=== PATIENT | male | born 1945 | race Caucasian/White ===

== ENCOUNTER 2021-01-09 16:19 | Outpatient (REF) | payer MEDICARE, SELFPAY ==
[2021-01-09 18:24] LABS: Hemoglobin A1C 5.9 % (<5.7)
== END 2021-01-09 16:20 | disposition home or self-care (01) ==
LOC: NCHCN 16:19
PROVIDERS: PCP Nurse Practitioner Family; Visit Provider Nurse Practitioner Family
DX: E11.9 Type 2 diabetes mellitus without complications (principal); I10 Essential (primary) hypertension
CPT/HCPCS: 83036

== ENCOUNTER → 2021-01-17 13:34 | Outpatient (BNVA) | payer MEDICARE, SELFPAY | PROVIDERS: PCP Nurse Practitioner Family; Referring Provider Nurse Practitioner Family; Visit Provider Physical Therapy Assistant | DX: K22.70 Barrett's esophagus without dysplasia (principal); I10 Essential (primary) hypertension; G20 Parkinson's disease; E11.9 Type 2 diabetes mellitus without complications | CPT/HCPCS: 99203 ==

== ENCOUNTER 2021-01-24 02:25 | Outpatient (CLI) | payer MEDICARE, SELFPAY ==
--- NOTE | 2021-01-24 | DI.US_ITS ---
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 COMPARISON: No exams were available for comparison FINDINGS: There is no ascites evident. LIVER: There is hyperechoic indicating steatosis. There are no discrete focal hepatic lesions identi fied GALLBLADDER/BILIARY: There are gallstones within the gallbladder lumen. Gallbladder wall does not ap pear edematous. There is no pericholecystic fluid The common hepatic duct isnot dilated, measuring 5mm at the level of griselda hepatis. PANCREAS: No obvious abnormality. SPLEEN: The spleen is not enlarged and there are no intrasplenic lesions evident. KIDNEYS:Kidneys exhibit normal size with no evidence of solid mass, calculus, nor hydronephrosis. No cortical cysts evident. ABDOMINAL AORTA: There is no evidence of abdominal aortic aneurysm. IVC: Normal diameter where visualized. IMPRESSION: 1. Cholelithiasis. However, no evidence of obvious acute cholecystitis and the biliary tree is not dilated. 2. Hepatic steatosis. Correlation with appropriate hepatic blood work recommended. 3. There is no ascites. DATA REPOSITORY:
--- NOTE | 2021-01-24 08:31 | DI.US_ITS ---
APPROVED REPORT EXAM: Comprehensive 2D, Doppler, and color-flow Echocardiogram Patient Location: Out-Patient Extension Forester: Yuly Lindsay RDCS (AE) Indications: Aortic valve disorder, Systolic cardiac murmur Other Information Study Quality: Adequate Conclusion Normal left ventricular wall thickness and chamber size. Estimated ejection fraction is 55 to 60%. Wall motion is normal Normal right ventricular size and systolic function The atria are normal in size Aortic valve is trileaflet and sclerotic. There is trace aortic regurgitation. There is no aortic s tenosis Mild mitral annular calcification. Trace mitral regurgitation Normal tricuspid valve with trace regurgitation. Estimated right ventricular systolic pressure is no rmal at 28 mmHg Wall motion Left Ventricle The left ventricle is normal size. The left ventricular systolic function is normal. The left ventric ular ejection fraction is within the normal range. There is normal left ventricular wall thickness. T here is normal LV segmental wall motion. There is no ventricular septal defect visualized. LVEF is 55 -60%. Right Ventricle The right ventricle is normal size. The right ventricular systolic function is normal. The RVSP is 28 .4mmHg. Atria The left atrium size is normal. The right atrium size is normal. The interatrial septum is intact wit h no evidence for an atrial septal defect. Aortic Valve The Aortic valve is sclerotic. Aortic valve is trileaflet. There is no aortic valvular stenosis. Trac e aortic regurgitation. Mitral Valve Mild mitral annular calcification. No evidence of mitral valve stenosis. Trace mitral regurgitation. Tricuspid Valve The tricuspid valve is normal in structure. There is no tricuspid valve stenosis. Trace tricuspid reg urgitation. Pulmonic Valve Pulmonic valve is not well visualized. There is no pulmonic valvular stenosis. There is no pulmonic v alvular regurgitation. Great Vessels The aortic root is normal in size. The ascending aorta is normal in size. Aortic arch is normal in ca liber. IVC is normal in size and collapses >50% with inspiration. Pericardium There is no pericardial effusion. 2D Dimensions IVSD d PLAX 0.87 cm M: 0.6-1.2 LV Vol A2C d MOD 93.6 mL LVPW d PLAX 0.85 cm M: 0.6 - 1.2 LV Vol A4C d MOD 91.1 mL LVID d PLAX 4.49 cm M: 4.2 - 5.8 LA vol/ BSA A2C s A-L 23.8 mL/m2 LVDs 3.10 cm M: 2.5 - 4.0 LA vol/ BSA A4C s A-L 17.7 mL/m2 Ao Root d 3.24 cm M: 3.1 - 3.7 LA Vol/ BSA Biplane s A-L 20.8 mL/m2 RA Area A4C 18.95 cm2 LA Area A4C s MOD 13.97 cm2 RA Vol/ BSA A4C s A-L 30.2 mL/m2 LA Area A2C s MOD 15.97 cm2 Ao Asc Diam d 3.19 cm M: 2.6 - 3.4 LV EF A4C MOD 55.0 % LV EF Teichholz 58.5 % LV EF A2C MOD 55.2 % LVEF (Lerma's) 55.06 % M: 52 - 72 LV EF Biplane MOD 55.1 % LV Volume 71.63 mL M: 62 - 150 SV 51.46 mL LV Volume Index 38.30 mL/m2 M: 34 - 74 SV Index 27.42 mL/m2 LV Vol Biplane MOD 93.5 mL FS 30.75 % M-Mode TAPSE 3.01 cm (M/F) >1.7 LV Diastology MV E' medial 0.088 (>0.07 m/s) E/A Ratio 0.9 LV E/e MED 9.75 (<14) MV E Vmax 0.86 (0.4-1.3 m/s) MV E' lateral 0.114 (>0.1 m/s) MV A Vmax 1.00 (0.4-1.3 m/s) LV E/e LAT 7.55 (<14) MV E/A Ratio 0.84 MV E/E' medial 9.77 MV E/E' lateral 7.56 Aortic Valve LVOT Area 3.20 cm2 AoV Area Vmax 2.29 cm2 LVOT Vmax 1.27 m/s AoV Area/ BSA (Vmax) 1.22 cm2/m2 LVOT Mean Gilbert. 0.81 m/s TOD Mean Gilbert. 2.21 cm2 LVOT Peak Grad 6.4 mmHg TOD Mean Gilbert. Index 1.18 cm2/m2 LVOT Mean Grad 3.1 mmHg AR DT 2785 msec LVOT VTI 0.269 m AR PHT 808 msec LVOT Diam s 2.00 cm AoV Vmax 1.78 m/s Velocity Ratio 0.71 AoV Mean Gilbert. 1.18 m/s AoV Peak Grad 12.6 mmHg LVOT SV 86.19 mL AoV Mean Grad 6.4 mmHg AoV VTI 0.357 m AoV Area VTI 2.41 cm2 AoV Area/ BSA (VTI) 1.29 cm/m2 Mitral Valve MV DT 276 (160-240 msec) MV PHT 80 msec MV Area PHT 2.75 cm2 MV VTI 0.371 m MV Area VTI 2.32 (4.0-6.0 cm2) Pulmonary Valve PV Vmax 1.09 (0.5-1.5 m/s) RVOT Peak Gr. 3.02 mmHg PV Peak Grad 4.8 mmHg RVOT Mean Gr. 1.55 mmHg PV Mean Grad 2.7 mmHg RVOT VTI 0.194 m PV VTI 0.226 m RVOT Vmax 0.87 m/s Tricuspid Valve TR Peak Grad 25.3 mmHg TR Vmax 2.52 m/s RA Pressure 3.00 mmHg RVSP (TR) 28.4 mmHg
--- NOTE | 2021-01-24 08:39 | DI.RAD_ITS ---
Exam(s) XR HIP RT COMPLETE AP PELVIS EXAM: XR HIP RT COMPLETE AP PELVIS CLINICAL HISTORY: RT HIP PAIN, M25.551. TECHNIQUE: 2D digital imaging was performed. COMPARISON: No exams were available for comparison FINDINGS: No evidence of pelvic nor hip fracture. A no obvious degenerative changes in the hips. No lytic oss eous lesions. Sacroiliac joints appear. IMPRESSION: DATA REPOSITORY: RADIATION DOSE DELIVERED:
== END 2021-01-24 02:45 ==
PROVIDERS: PCP Nurse Practitioner Family; Visit Provider Nurse Practitioner Family
DX: I35.9 Nonrheumatic aortic valve disorder, unspecified (principal); R01.1 Cardiac murmur, unspecified; M25.551 Pain in right hip; K74.60 Unspecified cirrhosis of liver; K75.4 Autoimmune hepatitis; K80.20 Calculus of gallbladder without cholecystitis without obstruction; Z87.898 Personal history of other specified conditions; K76.0 Fatty (change of) liver, not elsewhere classified
CPT/HCPCS: 93306; 73502; 76700

== ENCOUNTER 2021-01-29 01:43 | Outpatient (CLI) | payer MEDICARE, SELFPAY ==
[2021-01-29 12:41] LABS: Source Nasal/Nares
[2021-01-29 18:48] LABS: COVID-19 PCR Negative (Negative)
== END 2021-01-29 01:44 | disposition home or self-care (01) ==
PROVIDERS: Surgery; PCP Nurse Practitioner Family; Visit Provider Family Medicine
DX: Z20.822 Contact with and (suspected) exposure to COVID-19 (principal); Z01.818 Encounter for other preprocedural examination
CPT/HCPCS: 87635

== ENCOUNTER 2021-01-30 01:08 | Outpatient (CLI) | payer MEDICARE, SELFPAY ==
--- NOTE | 2021-01-30 14:19 | ST.MBS_ITS ---
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 Nurses control meds, laundry, housekeeping, meals. Sister in the area who is involved in his care. No RESIDENT CARE TECHNICIAN on staff. Cognitive Hx: none known Hx of prior RESIDENT CARE TECHNICIAN services: none Previous Imaging: EGD (2018) revealed Meyer's Esophagus, hiatal hernia SUBJECTIVE: Patient reports that he has not felt any issues with swallowing recently, aside from a pill getting stuck (may have been furosemide, but is unsure, unable to recall location of globus per interview today) IMPRESSIONS: Swallow safety is mildly impaired; swallow efficiency is moderately impaired. Mild-moderate, chronic oropharyngeal dysphagia with esophageal component likely complicated by hx of Meyer's Esophagus; characterized by reduced initiation of pharyngeal swallow (triggered at posterior laryngeal surface of epiglottis), reduced laryngeal elevation, partial anterior hyoid excursion, partial epiglottic inversion, incomplete laryngeal vestibule closure, diminished pharyngeal stripping wave, mildly reduced UES opening, and reduced tongue base retraction, resulting in penetration of most liquid trials, regardless of increased viscosity, and trace aspiration x1 during swallow of thin liquid (thin liquid wash task); patient does demonstrate adequate, effective sensory response to trace amount of aspirated material (thin liquid), is able to clear from airway without prompting, however cough strength could likely be improved; mild oral residue, moderate vallecular residue and mild pyriform sinus residue (solids>liquids), cleared most effectively with secondary hard swallow x1-2; thin liquid wash also helpful in reducing overall pharyngeal residue; esophageal retention noted with barium tablet in mid esophagus at level of aortic arch, cleared with additional thin liquid wash. Patient appears to be at low-moderate risk for potential aspiration PNA and/or pulmonary compromise and low risk for malnutrition, dehydration. Diet modification is not indicated. Swallow prognosis is good-fair given age, expected progression of swallowing function in context of PD, and pending patient/caregiver training in risk management as outlined, including use of trialed compensatory strategies, exercise as indicated. Patient appears to be a good candidate for behavioral swallow rehabilitation. Specialist referrals: N/A at this time Ancillary tests: May consider future consult with GI, with consideration of either repeat EGD to identify structural and/or inflammatory lesions in context of documented Meyer?s Esophagus+hiatal hernia (seen in 2018) or High Resolution Esophageal Manometry given mid-esophageal stasis seen with barium t ablet today Follow Up: Videofluoroscopic Swallow Study/Modified Barium Swallow Study [VFSS/MBSS] or Fiberoptic Endoscopic Evaluation of Swallow [FEES] to be scheduled within 6-12 months. Note: Best practice indicates routine, repeat VFSS/MBSS for patients diagnosed with PD - Due to the low association between PD patients' self-reported swallowing condition and actual swallowing function, either FEES or VFSS/MBSS is essential for the assessment of dysphagia in PD (Umaldooto & Beatrice, 2020) Diet texture recommendation: IDDSI Level 7-Regular Solids, 0-Thin Liquids Please see further details at [email or web address].org Diet texture modification is per patient's preference; please adjust diet textures at patient's discretion & collaboration with care team. Risk Management: Behavioral reflux precautions, including upright position during + 90 mins after meals. Small bites Small sips Alternate solids/liquids as able, monitoring for overt s/sx aspiration (ie cough) Multiple swallows per bolus (1-2x) with hard swallow to encourage clearance of pharyngeal stasis/residue Control risk factors for aspiration pneumonia via (a) thorough oral hygiene & (b) maintaining physical mobility as tolerated PLAN: Therapy: Recommend subsequent outpatient session with treating RESIDENT CARE TECHNICIAN to review results of today's exam and develop treatment plan as appropriate. Likely a good candidate for cough strength training / RMST. Goal: TBD pending patient/caregiver interview Follow-up exam: Routine, repeat VFSS/MBSS and/or FEES within 6-12 months. Thank you for allowing me to take part in this patient's care. Please feel free to contact me with any questions/concerns. Evelia Jeffries MA CCC-RESIDENT CARE TECHNICIAN Speech Language Pathologist [phone] OBJECTIVE: Videofluoroscopic Swallow Evaluation (VFSE/MBSS) was conducted in the lateral and [id number] projections by Speech-Language Pathologist, in collaboration with Radiologist, to evaluate oropharyngeal swallow function. Anatomic view under fluoroscopy: WFL PO Barium Contrast Trials Oral barium water-soluble contrast was administered as follows: IDDSI Level 0 Varibar thin liquid (40% w/v) IDDSI Level 2 Varibar nectar thick/mildly thick liquid (40% w/v) IDDSI Level 3 Varibar thin honey/liquidised/moderately-thick (40% w/v) IDDSI Level 4 Varibar pudding/pureed/extremely thick (40% w/v) IDDSI Level 7 Regular Solid: 1/2 walter cracker coated in 3 mL Varibar pudding; 13 mm barium tablet PHYSIOLOGIC FINDINGS (1) Oral Impairment 1 Lip Closure 0-No labial escape 2 Tongue Control 0- Cohesive bolus between tongue to palatal seal 3 Bolus Preparation/Mastication 0- Timely and efficient chewing/mashing 4 Bolus Transport/Lingual Motion 0- Brisk tongue motion 5 Oral residue 1- Trace residue lining oral structures Location palate, tongue 6 Initiation of pharyngeal swallow 2- Bolus head at posterior laryngeal surface of epiglottis Pharyngeal Impairment 7 Velar Elevation 0- No bolus between soft palate and phar yngeal wall 8 Laryngeal Elevation 1- Partial superior movement of thyroid cartilage with partial approximation of arytenoids to epiglottic petiole 9 Anterior Hyoid Excursion 1- Partial anterior movement 10 Epiglottic Movement 1- Partial inversion 11 Laryngeal Vestibule Closure 1- Incomplete; narrow column of air/cont rast in laryngeal vestibule Penetration occurs intermittently during initial swallow onset from current bolus Aspiration trace amount; occurs during initial swallow onset from current bolus (noted x1 during thin liquid wash task) PAS / Overall 8-Point Penetration-Aspiration Scale (2) 4 - Material enters the airway, contacts the vocal folds and is ejected from the airway Clinical Indicator(s) of Prandial/Postprandial Aspiration Cough (reflexive) 12 Pharyngeal Stripping Wave 1- Present; diminished 13 Pharyngeal Contraction 0- Complete 14 PES/UES Opening 1- Partial distension and partial durati on; partial obstruction of flow 15 Tongue Base Retraction 2- Narrow column of contrast between tongue base and posterior pharyngeal wall 16 Pharyngeal residue 2- Collection of residue within or on pharyngeal structures Location Key Pharyngeal Residue Severity Rating Scale(3) Diffuse; >3 areas Tongue base Valleculae IV Moderate 25-50% Epiglottic ligament covered Pyriform sinuses III Mild 5-25% Up wall to quarter full Aryepiglottic folds Esophageal Impairment 17 Esophageal Clearance in Upright Position 1- Esophageal retention Notes This study was performed for interpretation only of the oropharyngeal and pharyngoesophageal domains of swallowing, and is not intended to diagnose any other radiologic abnormalities or substitute for a formal esophagram study. Radiologist Impressions: Demonstration of radiopaque pill exhibited temper holdup the midesophagus at the level of the aortic arch. This passed with the additional liquid washes. No prominent holdup evident at the GE junction. No large hiatal hernia. No prominent reflux demonstrated. Please see Radiologist report for further information. ZURDO: (4) Severity LEVEL 6 - Full PO: normal diet - Within functional limits/modified independence (see recommended compensatory strategies) Trialed Compensatory Strategies & Outcome: Maneuvers Successful/Unsuccessful (+/-) Postures Successful/Unsuccessful (+/-) 3 second Preparatory Set + Chin Tuck Posture trialed during secondary saliva swallow only + no aspiration noted, penetration still present - no notable change in amount of cleared residue Cough Posterior Head tilt Reflexive + Cued Throat Clear Head Tilt to Reflexive Left Cued Right Saliva swallow x1-2 w hard swallow cue + Head Turn/Rotation to Supraglottic Swallow Left Super-supraglottic Swallow Right Bolus Modifications Successful/Unsuccessful (+/-) Delivery/Alternating Consistencies - Wash with thin + successful in clearing majority of vallecular and piriform sinus residue, - unsuccessful in preventing subsequent trace aspiration of thin liquid Delivery/Via Straw Reduced Volume + Reduced Rate of Intake + Increased Viscosity + successful in reducing aspiration, - unsuccessful in preventing vallecular and piriform sinus residue Other: Coding CPT Codes MOTION FLUOROSCOPY/SWALLOW - 61860 ([id number]) 1: Seema Petersen al. ?MBS measurement tool for swallow impairment--MBSImp: establishing a standard.? Dysphagia vol. 23,4 (2008): 392-405. doi:10.1007/g74184-754-0657-5 2: (Surendra et al, 1996) 3: (Oralia et kelli, 2015) 4: The Dysphagia Outcome and Severity Scale is a 7-point scale developed to systematically rate the functional severity of dysphagia based on objective assessment and make recommendations for diet level, independence level, and type of nutrition.
--- NOTE | 2021-01-30 15:10 | DI.RAD_ITS ---
Exam(s) RF MODIFIED SPEECH BA SWALLOW TECHNIQUE: Modified barium swallow was performed in conjunction with speech pathology. CONTRAST MATERIAL: Oral barium Oral water soluble contrast was administered. COMPARISON: No exams were available for comparison FINDINGS: Fluoroscopy provided during swallowing mechanism study performed our department in conjunction with alc[facility] bar speech therapist. There is no aspiration evident on this study. Demonstration of radiopaque pill exhibited temper holdup the midesophagus at the level of the aortic arch. This passed with the additional liquid washes. No prominent holdup evident at the GE junction . No large hiatal hernia. No prominent reflux demonstrated IMPRESSION: No evidence of aspiration . Other findings as above. Please also refer to speech therapist report RADIATION DOSE DELIVERED: mile Solis=24.1 mGy
[2021-01-30] MEDS: Barium Sulfate Oral Paste 40% W/V 230 ML TUBE PO (15:14)
[2021-01-30] MEDS: Barium Sulfate 40% W/V 1500 CPS 250 ML BTL PO (15:17)
[2021-01-30] MEDS: Barium Sulfate 81% w/w for Oral Suspension 148 GM BTL PO (15:19)
[2021-01-30] MEDS: Barium Sulfate 700 MG TAB PO (15:20)
== END 2021-01-30 01:28 ==
PROVIDERS: PCP Nurse Practitioner Family; Visit Provider Speech-Language Pathologist
DX: G20 Parkinson's disease (principal); R13.10 Dysphagia, unspecified
CPT/HCPCS: 92611; 74221

== ENCOUNTER 2021-03-25 13:38 | Outpatient (REF) | payer MEDICARE, SELFPAY ==
[2021-03-25 15:41] LABS: Hemoglobin A1C 6.2 % (<5.7)
== END 2021-03-25 13:39 | disposition home or self-care (01) ==
LOC: NCHCN 13:38
PROVIDERS: PCP Nurse Practitioner Family; Visit Provider Nurse Practitioner Family
DX: E11.9 Type 2 diabetes mellitus without complications (principal)
CPT/HCPCS: 83036

== ENCOUNTER 2021-03-29 12:06 | Outpatient (CLI) | payer MEDICARE, SELFPAY ==
[2021-03-31 15:32] LABS: COVID-19 RT-PCR UVMMC Result Negative (Negative)
== END 2021-03-29 12:07 | disposition home or self-care (01) ==
PROVIDERS: PCP Nurse Practitioner Family; Visit Provider Nurse Practitioner Family
DX: Z20.822 Contact with and (suspected) exposure to COVID-19 (principal)
CPT/HCPCS: U0003

== ENCOUNTER 2021-04-23 08:26 | Outpatient (CLI) | payer MEDICARE, SELFPAY | END 2021-04-23 08:27 | disposition home or self-care (01) | LOC: DI.CARD 08:27 | PROVIDERS: PCP Nurse Practitioner Family; Visit Provider Internal Medicine Cardiovascular Disease | CPT/HCPCS: 93010 ==

== ENCOUNTER → 2021-04-23 12:58 | Outpatient (BNVA) | payer MEDICARE, SELFPAY | PROVIDERS: PCP Nurse Practitioner Family; Referring Provider Nurse Practitioner Family; Visit Provider Internal Medicine Cardiovascular Disease | DX: I35.8 Other nonrheumatic aortic valve disorders (principal); G20 Parkinson's disease; I10 Essential (primary) hypertension | CPT/HCPCS: 99203 ==

== ENCOUNTER → 2021-05-09 13:23 | Outpatient (BNVA) | payer MEDICARE, SELFPAY | PROVIDERS: PCP Nurse Practitioner Family; Referring Provider Nurse Practitioner Family; Visit Provider Physical Therapy Assistant | DX: G20 Parkinson's disease (principal); I10 Essential (primary) hypertension; E11.9 Type 2 diabetes mellitus without complications; K22.70 Barrett's esophagus without dysplasia | CPT/HCPCS: 99213 ==

== ENCOUNTER 2021-05-20 02:14 | Outpatient (CLI) | payer MEDICARE, SELFPAY ==
[2021-05-20 10:26] LABS: Source Nasal/Nares
[2021-05-20 16:21] LABS: COVID-19 PCR Negative (Negative)
== END 2021-05-20 02:15 | disposition home or self-care (01) ==
LOC: LBO 02:14
PROVIDERS: PCP Nurse Practitioner Family; Visit Provider Surgery
DX: Z20.822 Contact with and (suspected) exposure to COVID-19 (principal); Z01.818 Encounter for other preprocedural examination
CPT/HCPCS: 87635; U0005

== ENCOUNTER 2021-05-22 09:07 | Day surgery (SDC) | payer MEDICARE, SELFPAY ==
--- NOTE | 2021-05-22 06:55 | W.PM.ENDDOP ---
Date of service: 05/22/21 Time of Service: 10:39 Endoscopy Report DATE OF PROCEDURE: 05/22/21 PRE-OP DIAGNOSIS: Hx of Meyer's POST-OP DIAGNOSIS: same (and benign gastric polyps) PROCEDURE: EGD with biopsies SURGEON: Kelli Lyman ANESTHESIA TYPE: General:No Airway PATHOLOGY: other (GE junction and esophagus bx) COMPLICATIONS: None DISPOSITION: same day INDICATIONS: Discussed Upper endoscopy procedure and the need to be NPO after midnight the night prior. Discussed possible complications of the procedure to include bleeding, pain, perforation, missed small lesion/polyp/ulcers, sore throat, aspiration and adverse reaction to the medications or sedation. Questions were answered to patient?s satisfaction. No guarantees were implied or given.? Patient's last Colonoscopy was in 2017 and was remarkable for tubular adenoma. Patient is not due for screening Colonoscopy until 2022. Also, discussed with Mr. Aguirre that unfortunately we would not be able to admit him over night to complete the bowel prep if he wishes to proceed with Colonoscopy. He lives in an assisted living facility and they should be able to provide assistance and accommodations. He will hold his Lisinopril the morning of his procedure. Reviewed COVID pre-caution's and pre-procedure testing. Patient is scheduled for COVID test. Instructions of testing location were provided. Patient verbalized understanding. P// EGD under sedation. FINDINGS: Meyer's esophagitis Multiple small benign gastric polyps PROCEDURE DESCRIPTION: After informed consent was obtained the patient was take to the procedure room and placed in a supine position. Monitors were applied and a time out was done. The patients name, date of , procedure type, allergies to medications and metal in their body was reviewed. A bite block was placed and the patient was sedated. Once sedated and comfortable the gastroscope was advanced through the oropharynx which was grossly normal into the esophagus. The proximal and mid-esophagus were normal. In the distal esophagus there was inflammation and evidence of Meyer's noted. The scope was advanced into the stomach and through the pylorus into the 3rd portion of the duodenum. The duodenum was noted to be normal. The scope was retracted back into the stomach. There was no inflammation and there were multiple benign polyps. There were no ulcers. The scope was retroflexed. The cardia and fundus were noted to be normal. There was no hiatal hernia noted. The scope was retracted back into the esophagus and biopsies were done of the GE junction for surveillance of his Meyer's. The Z line was regular. The GE junction was at 40 cm. Biopsies were done of the esophagus at 38 and 36 cm. The scope was removed and the patient was woken up and taken back to [facility] in stable condition. Follow up: Unless there is dysplacia I would recommend prn follow up
--- NOTE | 2021-05-22 06:56 | W.PM.DSUDISC ---
Discharge Plan Disposition Patient Disposition: HOME Condition: Good Discharge Details Reason For Visit: EGD Attending Provider: Kelli Lyman Primary Care Provider: Lizz Moser Home Meds and New Rx's Prescriptions: Continued mupirocin 2 % ointment 1 applic topical [id number] 0RF docusate sodium 100 mg capsule 100 mg PO QHS 0RF lisinopril 20 mg tablet 20 mg PO DAILY 0RF simvastatin 20 mg tablet 20 mg PO DAILY 0RF clotrimazole-betamethasone 1-0.05 % cream 1 applic topical BID 0RF finasteride 5 mg tablet 5 mg PO DAILY 0RF carbidopa-levodopa 50-200 mg tablet extended release 1.5 tab PO BID 0RF tamsulosin 0.4 mg capsule 0.8 mg PO DAILY 0RF entacapone 200 mg tablet 200 mg PO BID 0RF Rx Instructions: administer at the same time as l-dopa/carbidopa dose omeprazole 40 mg capsule,delayed release(DR/EC) 40 mg PO DAILY 0RF cholecalciferol (vitamin D3) 50 mcg (2,000 unit) capsule 50 mcg PO DAILY 0RF B Complex Plus Vitamin C [id number] mg capsule 1 cap PO DAILY 0RF Rx Instructions: give with food (meal/snack) Discharge Instructions Additional Instructions: Findings: Meyer's Follow up: I will send a letter in the mail Please call if you develop: fevers >101.5 Nausea or Vomiting Abdominal pain that is not transient Rectal bleeding that is more then a tbsp A hard abdomen and inability to pass gas DAY SURGERY UNIT POST ENDOSCOPY INSTRUCTIONS Instructions for everyone who is given Anesthesia: For your safety, please do the following for the next 24 Hours: a. Do not drive or operate dangerous equipment b. Do not drink alcohol beverages or use any recreational drugs for the first 24 hours or while taking pain medications. The medications in your body may have a reaction that can be dangerous. c. Do not make any important decisions or sign any important papers 1. Generally there are no restrictions on your activity after a day or so has gone by, but you may feel a bit fatigued for a few days. 2. After you arrive home you may have a light meal and return to a normal diet as you can tolerate it without feeling sick to your stomach. 3. After surgery, you may feel pain or discomfort. This should be only transient, but if it persists please contact your doctor. 4. If there are any questions regarding the findings of your procedure, please feel free to contact your doctor. 6. If you are unable to contact your doctor with a problem, contact the hospital at [phone]. 7. Continue all your regular medications unless directed otherwise. I understand the above instructions and have no questions. Signature of Patient or Responsible Adult Escort Date/Time Name of Responsible Adult Escort Signature of Nurse Date/Time Activity:: Activity as Tolerated Diet:: As Tolerated Discharge Orders Discharge Orders: Discharge Order (Routine); Ordered 05/22/21 Ordered By: Kelli Lyman
[2021-05-22 09:10] VITALS: BP 137/61; PULSE 76; RESP 18; TEMP 36.3; O2SAT 96
[2021-05-22] MEDS: Lactated Ringers 1,000 ML 80 ML IV (09:51)
--- NOTE | 2021-05-22 09:57 | W.ANESPRE ---
General Info Date of Service Date Performed: 05/22/21 Height: 5 ft 8 in Weight: 75.2 kg Body Mass Index (BMI): 25.2 Surgical Procedure: Operation Date: 05/22/21 10:50 Proposed Procedure Side Surgeon p Gastroscopy Kelli Lyman MD Actual Procedure Side Surgeon p Gastroscopy Not Applicable Kelli Lyman MD Pre-Op Diagnosis Post-Op Diagnosis BARRETTS ESOPHAGUS Meds Allergies and Home Medications Allergies Allergy/AdvReac Type Severity Reaction Status Date / Time azathioprine [From Imuran] Allergy Severe Verified 05/22/21 08:58 prednisone Allergy Severe Verified 05/22/21 08:58 Home Medication Medication Instructions Recorded carbidopa ER 50 mg-levodopa 200 mg 1.5 tab PO BID tab 12/31/20 tablet,extended release cholecalciferol (vitamin D3) 50 50 mcg PO DAILY 12/31/20 mcg (2,000 unit) capsule clotrimazole-betamethasone 1 1 applic TOPICAL BID 12/31/20 %-0.05 % topical cream docusate sodium 100 mg capsule 100 mg PO QHS cap 12/31/20 entacapone 200 mg tablet 200 mg PO BID 12/31/20 finasteride 5 mg tablet 5 mg PO DAILY 12/31/20 lisinopril 20 mg tablet 20 mg PO DAILY 12/31/20 mupirocin 2 % topical ointment 1 applic TOPICAL [id number] g 12/31/20 omeprazole 40 mg capsule,delayed 40 mg PO DAILY 12/31/20 release simvastatin 20 mg tablet 20 mg PO DAILY 12/31/20 tamsulosin 0.4 mg capsule 0.8 mg PO DAILY cap 12/31/20 vitamin B comp and C no.3 15 mg-10 1 cap PO DAILY 03/28/21 mg-50 mg-5 mg-300 mg capsule (B Complex Plus Vitamin C) Current Visit Medications: Current Medications Generic Name Dose Route Start Last Admin Trade Name Freq PRN Reason Stop Dose Admin Hyoscyamine Sulfate 0.125 mg 05/22/21 06:56 Hyoscyamine 0.125 Mg Sl/Oral/Chew SL DIRECTED PRN Ringer's Solution 1,000 mls @ 80 mls/hr 05/22/21 06:00 05/22/21 09:51 IV 06/20/21 23:59 80 mls/hr INFUSION OC Administration IV Miscellaneous Supplies 1 each 05/22/21 06:00 Iv Access IV 06/20/21 23:59 DIRECTED OC Ondansetron HCl 4 mg 05/22/21 06:56 Ondansetron 4 Mg/2 Ml Vial IVP Q4H PRN PRN Nausea / Vomiting Sodium Chloride 0 ml 05/22/21 06:00 Normal Saline Flush 10 Ml Syr IV 06/20/21 23:59 PRN PRN Sodium Chloride 0 ml 05/22/21 06:00 Normal Saline 10 Ml Vial IJ 06/20/21 23:59 DIRECTED PRN Sterile Water 0 ml 05/22/21 06:00 Water,Injection,Sterile 10 Ml Vial IJ 06/20/21 23:59 DIRECTED PRN PFSH Active Problems Active Problems: Problem Status Onset Code Barretts esophagus K22.70 Parkinsons G20 HTN (hypertension) I10 Aortic valve sclerosis I35.8 Autoimmune hepatitis K75.4 Cirrhosis K74.60 Systolic murmur at cardiac apex R01.1 Dysphagia R13.10 Medical History Medical History Aortic valve disorder Biceps tendon rupture BPH (benign prostatic hyperplasia) Depression Diabetes mellitus Dietary vitamin B12 deficiency anemia Gallstones H/O cardiac murmur Hepatitis C Hiatal hernia Hip pain Hypercholesterolemia Hypogonadism Jaundice Low back pain Obesity Osteopenia Rotator cuff tear, right Steatosis of liver Steroid myopathy Tubular adenoma of colon Vitamin D deficiency Surgical History Surgical History H/O esophagogastroduodenoscopy (~12/2017) History of colonoscopy (~12/2017) Tobacco Smoking/Tobacco Use Status: Never Alcohol Alcohol Intake: former Substance Use Substance use type: does not use Vital Signs and Lab Results Vital Signs Most Recent Vital Signs in EMR: Most Recent Vital Signs Temp Pulse Resp BP Pulse Ox 36.3 C L 76 18 137/61 96 05/22/21 09:10 05/22/21 09:10 05/22/21 09:10 05/22/21 09:10 05/22/21 09:10 Lab Results Blood Type / Crossmatch: No Data to Display Complete Blood Count: No Data to Display Complete Metabolic Panel: No Data to Display Liver Function Panel: No Data to Display Coagulation Panel: No Data to Display Cardiac Panel: No Data to Display Arterial Blood Gas: No Data to Display Venous Blood Gas: No Data to Display Pancreas Panel: No Data to Display Thyroid Panel: No Data to Display Infectious Disease: Coronavirus (COVID-19)(PCR) Negative (Negative) 05/20/21 09:49 05/20/21 Coronavirus 2019 Source Nasal/Nares 05/20/21 09:49 05/20/21 Blood Cultures: No Data to Display Toxicology Panel: No Data to Display Imaging and Studies Imaging and Studies Study information below may be from another EMR and interpreted by another provider. Please see original notes in EMR for more complete details. Echocardiogram Summary: Conclusion Normal left ventricular wall thickness and chamber size. Estimated ejection fraction is 55 to 60%. Wall motion is normal Normal right ventricular size and systolic function The atria are normal in size Aortic valve is trileaflet and sclerotic. There is trace aortic regurgitation. There is no aortic stenosis Mild mitral annular calcification. Trace mitral regurgitation Normal tricuspid valve with trace regurgitation. Estimated right ventricular systolic pressure is normal at 28 mmHg Anesthesia Assessment and Plan Anesthesia History Personal History: Unknown Anesthesia History Family History: Family History Unknown Exercise Tolerance Exercise Tolerance: Metabolic Equivalents>4 Cardiac & Pulmonary Exam Cardiac Exam: Heart Murmur Present Pulmonary Exam: Clear Bilateral Breath Sounds Implantable Cardiac Device Does patient have a Pacemaker or an ICD?: No Airway Exam Known Difficult Airway: No Mallampati Class: 2 Mouth Opening: Normal (> 3cm) Thyromental Distance: Greater than 3 cm Neck Range of Motion: Full ROM Neck Circumference: Normal Teeth Condition: Normal Dentition ASA Classification ASA Score: ASA 3 Emergency Case?: No NPO Status NPO Status: NPO Clears >2 hours, Solids >8 hours Anesthesia Plan Resuscitation Status: Full Code Anesthesia Technique: General Anesthesia Airway Planned: Natural Airway Monitors Used: Standard Monitors
[2021-05-22 10:00] VITALS: BMI 25.2
--- NOTE | 2021-05-22 10:28 | ESO_PTH ---
PATIENT: Niko Aguirre LOC: [facility] U#:[id number] AGE/SX: 76/M ROOM: RE05/22/[address]: Kelli Lyman MD : 1945 BED: DIS: 05/22/2021 SPEC #: [id number] RECD: 05/22/21 12:56 STATUS: SAM ATKINSON #: [id number] THIAGO: 05/22/21 10:[address]: Kelli Lyman DEPT: Surgical Specimen RECD BY: Sera Pepper ENTERED: 05/22/21 12:57 SP TYPE: [place] ERIC DR: Lizz Moser Tissues: 1 - ESOPHAGUS BIOPSY 2 - ESOPHAGUS BIOPSY 3 - ESOPHAGUS BIOPSY Procedures: GROSS AND MICRO LEVEL 4 Comments: [id number]
[2021-05-22 10:45] VITALS: BP 111/67; PULSE 58; RESP 16; TEMP 34.6; O2SAT 95
[2021-05-22 11:10] VITALS: BP 127/77; PULSE 63; RESP 16; TEMP 36.3; O2SAT 98
--- NOTE | 2021-05-22 11:19 | W.ANESPOSTOP ---
Postoperative Evaluation Date, Time and Location Date Performed: 05/22/21 Time Performed: 11:10 Patient Location: Day Surgery Unit Vital Signs Most Recent Imported Vital Signs: Most Recent Vital Signs Temp Pulse Resp BP Pulse Ox 36.3 C L 63 16 127/77 98 05/22/21 11:10 05/22/21 11:10 05/22/21 11:10 05/22/21 11:10 05/22/21 11:10 Pain Score Most Recent Pain Score: Most Recent Pain Score Pain Level 0 05/22/21 11:10 Assessment Mental Status: Awake (Alert & Oriented to Patient Baseline) Airway and Respiratory Function: Patent airway with normal (patient baseline) respiratory exam Cardiovascular Function: Hemodynamically Stable Hydration Status: Adequately Hydrated Nausea & Vomiting: No Nausea or Vomiting Pain: Pt. Denies Any Pain Peripheral Nerve Block: Patient did not receive a nerve block
== END 2021-05-22 11:51 | disposition home or self-care (01) ==
LOC: SUR 09:08
PROVIDERS: PCP Nurse Practitioner Family; Visit Provider Surgery
PROC: 0DJ68ZZ Inspection of Stomach, Via Natural or Artificial Opening Endoscopic (ICD-10-PCS; CPT 43235; principal; 2021-05-22 10:45)
DX: K22.70 Barrett's esophagus without dysplasia (principal); K31.7 Polyp of stomach and duodenum; G20 Parkinson's disease; I10 Essential (primary) hypertension; E11.9 Type 2 diabetes mellitus without complications; K31.A0 Gastric intestinal metaplasia, unspecified
CPT/HCPCS: 43239; 88305; J2001; J2704

== ENCOUNTER 2021-05-28 08:34 | Outpatient (CLI) | payer MEDICARE, SELFPAY ==
--- NOTE | 2021-05-28 | DI.RAD_ITS ---
Exam(s) XR KNEE RT 4V+ EXAM: XR KNEE RT 4V+ CLINICAL HISTORY: RT KNEE PAIN,M25.561. TECHNIQUE: 2D digital imaging was performed. COMPARISON: None FINDINGS: Four views of the right knee reveal no evidence of acute fracture. There is small amount of increase d joint fluid. There is subcutaneous soft tissue swelling anterior to the entire length of the silva lar ligament. Patella exhibits normal position. No patellar nor other fractures. Minimal if any si gnificant degenerative changes in all 3 compartments. Vascular calcification is noted in the femoral and popliteal artery. Interestingly there is also calcification within tiny vessels within the ante rior intra-articular Hoffa fat pad, seen on the lateral view. The retropatellar space is maintained. There is no patellar displacement. There is no immediate prepatellar soft tissue swelling. IMPRESSION: Anterior soft tissue swelling which extends along the length of the patellar ligament. Correlation w ith clinical symptoms at this level recommended. No significant osseous findings. DATA REPOSITORY: RADIATION DOSE DELIVERED:
== END 2021-05-28 08:54 ==
PROVIDERS: PCP Nurse Practitioner Family; Visit Provider Nurse Practitioner Family
DX: M25.561 Pain in right knee (principal); M79.89 Other specified soft tissue disorders; M25.861 Other specified joint disorders, right knee
CPT/HCPCS: 73564

== ENCOUNTER 2021-06-04 21:14 | Outpatient (REF) | payer MEDICARE, SELFPAY ==
[2021-06-04 14:13] LABS: Hemoglobin A1C 6.4 % (<5.7)
== END 2021-06-04 21:15 | disposition home or self-care (01) ==
LOC: NCHCN 21:14
PROVIDERS: PCP Nurse Practitioner Family; Visit Provider Nurse Practitioner Family
DX: E11.9 Type 2 diabetes mellitus without complications (principal)
CPT/HCPCS: 83036

== ENCOUNTER 2021-06-22 13:24 | Outpatient (REF) | payer MEDICARE, SELFPAY ==
[2021-06-22 13:36] LABS: Anion Gap 8.4 mmol/L (3-11); BUN 19 mg/dL (7-18); CO2 27.6 mmol/L (21.0-32.0); CREATININE 1.2 mg/dL (0.70-1.30); Calcium 8.9 mg/dL (8.5-10.1); Chloride 104 mmol/L (98-107); Estimated GFR 58.56 (mL/min/1.73m2); Glucose 103 mg/dL (74-106); Potassium 4.4 mmol/L (3.5-5.1); Sodium 140 mmol/L (136-145)
== END 2021-06-22 13:25 | disposition home or self-care (01) ==
LOC: NCHCN 13:24
PROVIDERS: PCP Nurse Practitioner Family; Visit Provider Nurse Practitioner Family
DX: I10 Essential (primary) hypertension (principal); E11.9 Type 2 diabetes mellitus without complications; R60.0 Localized edema
CPT/HCPCS: 80048

== ENCOUNTER → 2021-06-24 10:44 | Outpatient (BNVA) | payer MEDICARE, SELFPAY | PROVIDERS: PCP Nurse Practitioner Family; Referring Provider Nurse Practitioner Family; Visit Provider Nurse Practitioner Gerontology | DX: N42.89 Other specified disorders of prostate (principal); R97.20 Elevated prostate specific antigen [PSA] | CPT/HCPCS: 51798; 99215 ==

== ENCOUNTER 2021-06-24 15:17 | Outpatient (REF) | payer MEDICARE, SELFPAY ==
[2021-06-25 17:39] LABS: PSA, Diagnostic 1.7 ng/mL (<=6.5)
== END 2021-06-24 15:18 | disposition home or self-care (01) ==
LOC: LBN 15:17
PROVIDERS: PCP Nurse Practitioner Family; Visit Provider Nurse Practitioner Gerontology
DX: N42.89 Other specified disorders of prostate (principal); R97.20 Elevated prostate specific antigen [PSA]
CPT/HCPCS: 84153

== ENCOUNTER → 2021-06-26 13:59 | Outpatient (BNVA) | payer MEDICARE, SELFPAY | PROVIDERS: PCP Nurse Practitioner Family; Referring Provider Nurse Practitioner Family; Visit Provider Psychiatry & Neurology Neurology | DX: G20 Parkinson's disease (principal); R13.10 Dysphagia, unspecified; R32 Unspecified urinary incontinence; I10 Essential (primary) hypertension; E11.9 Type 2 diabetes mellitus without complications | CPT/HCPCS: 99215 ==

== ENCOUNTER 2021-07-08 14:09 | Outpatient (CLI) | payer MEDICARE, SELFPAY ==
--- NOTE | 2021-07-08 14:00 | DI.RAD_ITS ---
Exam(s) XR CERVICAL SPINE COMP 4-5V EXAM: XR CERVICAL SPINE COMP 4-5V CLINICAL HISTORY: pain in neck. TECHNIQUE: 2D digital imaging was performed. COMPARISON: No exams were available for comparison FINDINGS: BONES: No fracture or destructive lesion. Vertebral bodies are unremarkable. DISKS: Intervertebral disc spaces are maintained. Endplate osteophytes projecting anteriorly from th e inferior endplate of C4 through C6. Prominent facet degenerative changes. Left-sided neural mavis inal narrowing at C3-4. ALIGNMENT: Cervical spinal alignment is within normal limits. The odontoid and atlantoaxial articulat ions are normal. SOFT TISSUE: Normal. The lung apices are clear. IMPRESSION: Degenerative changes of the facet joints cause left-sided neural foraminal narrowing at C3-4. DATA REPOSITORY: RADIATION DOSE DELIVERED:
== END 2021-07-08 14:10 | disposition home or self-care (01) ==
LOC: DIORS 14:09
PROVIDERS: PCP Nurse Practitioner Family; Referring Provider Nurse Practitioner Family; Visit Provider Student in an Organized Health Care Education/Training Program
DX: M54.2 Cervicalgia (principal); M25.561 Pain in right knee; W19.XXXA Unspecified fall, initial encounter; G20 Parkinson's disease; I10 Essential (primary) hypertension; Z99.89 Dependence on other enabling machines and devices
CPT/HCPCS: 99214; 72050

== ENCOUNTER 2021-07-26 19:24 | Outpatient (REF) | payer MEDICARE, SELFPAY ==
[2021-07-27 13:16] LABS: COVID-19 RT-PCR UVMMC Result Negative (Negative)
== END 2021-07-26 19:25 | disposition home or self-care (01) ==
LOC: NCHCN 19:24
PROVIDERS: PCP Nurse Practitioner Family; Visit Provider Nurse Practitioner Family
DX: Z20.822 Contact with and (suspected) exposure to COVID-19 (principal)
CPT/HCPCS: U0003; U0005

== ENCOUNTER 2021-07-30 18:06 | Outpatient (REF) | payer MEDICARE, SELFPAY ==
[2021-07-31 12:05] LABS: COVID-19 RT-PCR UVMMC Result Positive (Negative)
== END 2021-07-30 18:07 | disposition home or self-care (01) ==
LOC: NCHCN 18:06
PROVIDERS: PCP Nurse Practitioner Family; Visit Provider Nurse Practitioner Family
DX: Z20.822 Contact with and (suspected) exposure to COVID-19 (principal)
CPT/HCPCS: U0003; U0005

== ENCOUNTER 2021-07-31 10:13 | Emergency (ER) | payer MEDICARE, SELFPAY ==
[2021-07-31 10:13] VITALS: BP 136/65; PULSE 84; RESP 17; TEMP 36.9; O2SAT 95
--- NOTE | 2021-07-31 11:00 | DI.CT_ITS ---
Exam(s) CT HEAD CERV SPINE FACIAL WO EXAM: CT HEAD CERV SPINE FACIAL WO CLINICAL HISTORY: fall, HI, epistaxis. TECHNIQUE: Imaging Protocol: Axial computed tomography images with coronal and sagittal reformatted images were created and reviewed COMPARISON: No exams were available for comparison FINDINGS: CT Head and face: Ventricles and Extra axial spaces: Normal in size and morphology for the patient's age. Hemorrhage: None. Cerebral parenchyma: Mild atrophy consistent with the patient's age. Mild white matter changes of sm all vessel disease. Midline shift: None. Brainstem/Cerebellum: Normal. Calvarium: Normal. Visualized Paranasal sinuses/Mastoids: Mucous retention it in ethmoid sinuses. Facial bones: Nondisplaced nasal fractures. Fracture of anterior nasal spine of maxilla. No additio nal facial fractures. Orbits intact. Soft Tissues: Swelling around nose. CT Cervical Spine: Bones: No acute fracture or subluxation. Degenerative disc changes and facet degenerative changes are seen. Soft Tissues: Unremarkable. IMPRESSION: 1. CT head: No acute intracranial process. 2. CT C-spine: Degenerative changes in the cervical spine. No acute fracture or subluxation in the c ervical spine. 3. CT face: Nasal fractures, not significantly displaced. Fracture of the anterior nasal spine of th e maxilla. RADIATION DOSE DELIVERED: 1,710.1mGy.cm Total DLP DATA REPOSITORY: All CT scans at this facility are submitted to the National Radiology Data Registry (NRDR) Dose Index Registry (DIR) with the [employer] (A[employer]). RADIATION OPTIMIZATION: All CT scans at this facility use at least one of these dose optimization te chniques: automated exposure control; mA and/or kV adjustment per patient size (includes targeted exa ms where dose is matched to clinical indication); or iterative reconstruction.
[2021-07-31] MEDS: Oxymetazolone 0.05% SPRAY 15 ML BTL (11:30)
[2021-07-31 12:22] VITALS: BP 144/73; PULSE 77; RESP 16; TEMP 36.8; O2SAT 99
--- NOTE | 2021-07-31 13:06 | W.ED.GENAD ---
Discharge Plan Disposition Patient Disposition: HOME Condition: Stable Discharge Details Clinical Impression: Closed fracture nasal bone, Epistaxis Primary Care Provider: Lizz Moser ED Provider: Sera Burgos Home Meds and New Rx's Prescriptions: New cephalexin 500 mg tablet 500 mg PO BID 7 Days Qty: 14 0RF Continued carbidopa-levodopa 50-200 mg tablet extended release 1.5 tab PO TID Qty: 405 3RF entacapone 200 mg tablet 200 mg PO TID Qty: 270 3RF Rx Instructions: administer at the same time as l-dopa/carbidopa dose Balanced B-100 Complex 100 mg tablet extended release PO DAILY docusate sodium 100 mg capsule 100 mg PO QHS lisinopril 20 mg tablet 20 mg PO DAILY simvastatin 20 mg tablet 20 mg PO DAILY finasteride 5 mg tablet 5 mg PO DAILY tamsulosin 0.4 mg capsule 0.8 mg PO DAILY omeprazole 40 mg capsule,delayed release(DR/EC) 40 mg PO DAILY cholecalciferol (vitamin D3) 50 mcg (2,000 unit) capsule 50 mcg PO DAILY B Complex Plus Vitamin C [id number] mg capsule 1 cap PO DAILY Rx Instructions: give with food (meal/snack) Discharge Instructions Instructions: Nosebleed (ED), Head Injury (ED) Additional Instructions: Nasal packing will need to be removed in 3 days, you may return to the emergency department to have this removed Take the antibiotics only for the period of time which you have the nasal packing in place I am listing ENT for you to follow-up with, we will place a referral for follow-up as he did have nasal bone fractures Please return with persistent bleeding, or with any new or worsening complaints If you do start rebleeding, you may apply the nasal clamp allowed to sit for 20 minutes, if after meeting any do not need to return to the emergency department Please return earlier should he have any new or worsening complaints Do not attempt to blow your nose or remove any clot from your nose stay away from aspirin and ibuprofen You may take Tylenol as needed for pain i am giving you several tablets of oxycodone, this medication is addictive and may need 6 months only as needed, 2.5 milligrams or half a tablet to 1 full tablet every 8 hours as needed for comfort in addition to Tylenol Referrals: Lizz Moser [Primary Care Provider] - Jeffery Mcgee MD [ [facility] ST[facility]FF PHYSICIAN] - 1 week (epistaxis) Discharge Data Discharge Date/Time-TO BE ENTERED AT DEPARTURE: 07/31/21 14:04 Medical Decision Making Tetanus is reportedly up-to-date With persistent bleeding despite packing and phenylephrine, Rhino Rocket placed, placed on Keflex Bleeding controlled Fully alert and oriented, nasal bone fracture and noted ENT referral Will need to have packing removed in 3 days In no acute distress Several tablets of oxycodone as needed pain Risk of addiction discussed Film per radiology interpretation reviewed Return precautions discussed and patient expressed understanding Medical Records Medical records reviewed: Yes I reviewed the patient's medical records. Lab Data Lab results reviewed: Yes I reviewed the patient's lab results. HPI General Date/Time Provider Initiated Documentation: 07/31/21 11:02. HPI Narrative: This 76-year-old gentleman with past medical history of Parkinson's, Meyer's esophagus, hypertension, autoimmune hepatitis presents status post mechanical fall secondary to Parkinson and weakness landing on his face. He had immediate epistaxis. There was no loss of consciousness when the event was witnessed. He denies any additional complaints at this time. He denies any chest pain or shortness of breath. He denies any numbness or tingling. He denies any history of coagulopathy. He denies any additional complaints at this time. Event occurred approximately half hour prior to arrival. Pain noted. Related Data Home Medications Medication Instructions Recorded Confirmed cholecalciferol (vitamin D3) 50 50 mcg PO DAILY 12/31/20 07/31/21 mcg (2,000 unit) capsule docusate sodium 100 mg capsule 100 mg PO QHS 12/31/20 07/31/21 finasteride 5 mg tablet 5 mg PO DAILY 12/31/20 07/31/21 lisinopril 20 mg tablet 20 mg PO DAILY 12/31/20 07/31/21 omeprazole 40 mg capsule,delayed 40 mg PO DAILY 12/31/20 07/31/21 release simvastatin 20 mg tablet 20 mg PO DAILY 12/31/20 07/31/21 tamsulosin 0.4 mg capsule 0.8 mg PO DAILY 12/31/20 07/31/21 vitamin B comp and C no.3 15 mg-10 1 cap PO DAILY 03/28/21 07/31/21 mg-50 mg-5 mg-300 mg capsule (B Complex Plus Vitamin C) vit B complex 100 combo no.2 100 tab PO DAILY 06/24/21 07/09/21 mg tablet,extended release (Balanced B-100 Complex) carbidopa ER 50 mg-levodopa 200 mg 1.5 tab PO TID #405 tabs 06/26/21 07/31/21 tablet,extended release entacapone 200 mg tablet 200 mg PO TID #270 tabs 06/26/21 07/31/21 cephalexin 500 mg tablet 500 mg PO BID 7 days #14 tabs 07/31/21 Previous Rx's Medication Instructions Recorded carbidopa ER 50 mg-levodopa 200 mg 1.5 tab PO TID #405 tabs 06/26/21 tablet,extended release entacapone 200 mg tablet 200 mg PO TID #270 tabs 06/26/21 cephalexin 500 mg tablet 500 mg PO BID 7 days #14 tabs 07/31/21 Allergies Allergy/AdvReac Type Severity Reaction Status Date / Time azathioprine [From Imuran] Allergy Severe Verified 07/31/21 10:23 prednisone Allergy Severe Verified 07/31/21 10:23 General Stated Complaint: Orthopedic ALEK: 4 Review of Systems All systems reviewed & are unremarkable except as noted in HPI and below PFSH All Active Problems (Updated 07/31/21 @ 12:51 by BENITO Sanderson) Closed fracture nasal bone (Acute) Epistaxis (Acute) Cervicalgia (Acute) Idiopathic Parkinson's disease (Acute) Asymmetric prostate (Acute) Elevated PSA (Acute) Barretts esophagus (Acute) Parkinsons (Acute) HTN (hypertension) (Acute) Aortic valve sclerosis (Acute) Autoimmune hepatitis (Acute) Cirrhosis (Acute) Systolic murmur at cardiac apex (Acute) Dysphagia (Acute) Medical History Aortic valve disorder Biceps tendon rupture BPH (benign prostatic hyperplasia) Depression Diabetes mellitus Dietary vitamin B12 deficiency anemia Gallstones H/O cardiac murmur Hepatitis C Hiatal hernia Hip pain Hypercholesterolemia Hypogonadism Jaundice Low back pain Obesity Osteopenia Pedal edema Rotator cuff tear, right Steatosis of liver Steroid myopathy Tubular adenoma of colon Vitamin D deficiency Surgical History H/O esophagogastroduodenoscopy (~12/2017) History of colonoscopy (~12/2017) Family History Other Diabetes Heart disease Hypertension Stroke Social History Smoking/Tobacco Use Status: Never Smoking risk assessment performed?: Yes Alcohol Intake: former Substance use type: does not use Household members: none Number of Children: 0 current occupation: Retired [employer] Professional Do you feel safe at home: Yes Do you feel safe in your relationship?: Yes Additional Social history: cannot assess privatley Exam Const General: cooperative, comfortable and no acute distress HENMT Other: Ecchymosis and swelling to nare, no septal hematoma No periorbital ecchymosis Eyes Pupils: PERRL Neck Other: Nontender cervical spine exam Chest Other: No chest wall tenderness Resp Auscultation: clear to auscultation bilaterally Cardio Rate: regular rate Rhythm: regular rhythm GI Inspection: normal to inspection Other: Nontender abdominal exam Back/Spine/Pelvis Other: No thoracic or lumbar spine tenderness Neuro General: patient alert and patient oriented x3 Extrem General: normal to inspection Other: Distal pulses intact, strength and sensation intact distally Right knee with abrasion, full range of motion Course Vital Signs Vital signs: Vital Signs Temperature 36.9 C 07/31/21 10:13 Pulse 84 07/31/21 10:13 Respiratory Rate 17 07/31/21 10:13 Blood Pressure 136/65 07/31/21 10:13 Pulse Oximetry 95 07/31/21 10:13 Temperature 36.8 C 07/31/21 12:22 Temperature Source Oral 07/31/21 12:22 Pulse 77 07/31/21 12:22 Respiratory Rate 16 07/31/21 12:22 Respiratory Effort Non-Labored 07/31/21 10:21 Blood Pressure 144/73 H 07/31/21 12:22 Blood Pressure Position Sitting 07/31/21 10:13 Pulse Oximetry 99 07/31/21 12:22 Oxygen Delivery Method Room Air 07/31/21 12:22 Oxygen Flow Rate 0 07/31/21 12:22 Pain Level 4 07/31/21 12:22 Procedures Epistaxis Control Time Out Performed: Yes Nostril: left Nose Prepped With: phenylephrine Direct Inspection: yes Clots Removed by: blowing nose Cautery Used: none Device Size: 5 Patient Tolerated Procedure: well and no complications
[2021-07-31] MEDS: Cephalexin 500 MG CAP PO (13:27)
[2021-07-31] MEDS: Carbidopa 50/Levodopa 200 CR TABCR 1.5 TAB PO (13:27)
--- NOTE | 2021-07-31 13:59 | NUR.NOTE ---
Referral faxed to [facility] for epistaxis, packing in place, nasal bone fx, by the end of the week. Kristy Teran
== END 2021-07-31 14:04 | disposition home or self-care (01) ==
LOC: ER 17:09
PROVIDERS: Emergency Provider Physician Assistant; PCP Nurse Practitioner Family
DX: S02.2XXA Fracture of nasal bones, initial encounter for closed fracture (principal); W18.39XA Other fall on same level, initial encounter
CPT/HCPCS: 30901; 99284; 70450; 70486; 72125; 99283

== ENCOUNTER → 2021-08-15 10:16 | Outpatient (BNVA) | payer MEDICARE, SELFPAY | PROVIDERS: PCP Nurse Practitioner Family; Referring Provider Nurse Practitioner Family; Visit Provider Psychiatry & Neurology Neurology | DX: G20 Parkinson's disease (principal) | CPT/HCPCS: 99214 ==

== ENCOUNTER 2021-08-26 16:14 | Outpatient (REF) | payer MEDICARE, SELFPAY ==
[2021-08-26 18:39] LABS: Abs Immature Grans 0.01 10^3/uL (0.0-0.06); Absolute Basophil Count 0.05 10^3/uL (0.0-0.2); Absolute Eosinophil Count 0.16 10^3/uL (0.0-0.7); Absolute Lymphocyte Count 2.33 10^3/uL (1.2-3.4); Absolute Monocyte Count 0.65 10^3/uL (0.1-0.8); Absolute Neutrophil Count 3.61 10^3/uL (1.2-6.7); Basophils % 0.7; Eosinophils % 2.3; HCT 32.1 % (40.0-50.0); HGB 10.7 g/dL (13.5-17.5); Immature Grans % 0.1; Lymphocytes % 34.2; MCH 32.3 pg (27.0-33.0); MCHC 33.3 % (32.0-36.0); MCV 97 fL (80-95); MPV 10.6 fL (8.0-11.0); Monocytes % 9.5; Neutrophils % 53.2; Platelet Count 185 10^3/uL (130-400); RBC 3.31 10^6/uL (4.36-5.78); RDW-SD 46.3 fL; WBC 6.81 10^3/uL (4.4-10.8)
[2021-08-26 18:54] LABS: Hemoglobin A1C 6.3 % (<5.7)
[2021-08-26 19:17] LABS: ALT 12 U/L (16-63); AST 8 U/L (15-37); Albumin 3.5 g/dL (3.4-5.0); Alkaline Phosphatase 76 U/L (46-116); Anion Gap 8.2 mmol/L (3-11); BUN 18 mg/dL (7-18); Bilirubin, Total 0.5 mg/dL (0.2-1.0); CO2 27.8 mmol/L (21.0-32.0); CREATININE 1.2 mg/dL (0.70-1.30); Calcium 8.4 mg/dL (8.5-10.1); Calculated LDL 89 mg/dL (<100); Chloride 107 mmol/L (98-107); Cholesterol 155 mg/dL (<200); Estimated GFR 58.56 (mL/min/1.73m2); Glucose 121 mg/dL (74-106); HDL Cholesterol 45 mg/dL (40-60); Potassium 4.4 mmol/L (3.5-5.1); Sodium 143 mmol/L (136-145); Total Protein 6.6 g/dL (6.4-8.2); Triglyceride 107 mg/dL (<150); Vitamin B12 791 pg/mL (193-986)
[2021-08-26 19:21] LABS: Vitamin D 25 Total 63.8 ng/mL (30-100)
== END 2021-08-26 16:15 | disposition home or self-care (01) ==
LOC: NCHCN 16:14
PROVIDERS: PCP Nurse Practitioner Family; Visit Provider Nurse Practitioner Family
DX: E11.9 Type 2 diabetes mellitus without complications (principal); I10 Essential (primary) hypertension; E53.8 Deficiency of other specified B group vitamins; E55.9 Vitamin D deficiency, unspecified; G20 Parkinson's disease; K74.60 Unspecified cirrhosis of liver
CPT/HCPCS: 80053; 80061; 82306; 82607; 83036; 85025

== ENCOUNTER 2021-08-27 20:08 | Outpatient (REF) | payer MEDICARE, SELFPAY ==
[2021-08-27 19:27] LABS: Iron 52 ug/dL (65-175); Total Iron Binding Capacity 242 ug/dL (250-450); Transferrin Sat 21 % (20-55)
[2021-08-27 20:39] LABS: Ferritin 62 ng/mL (26-388); Folate > 20.0 ng/mL (8.6-20.0)
== END 2021-08-27 20:09 | disposition home or self-care (01) ==
LOC: NCHCN 20:08
PROVIDERS: PCP Nurse Practitioner Family; Visit Provider Nurse Practitioner Family
DX: D64.9 Anemia, unspecified (principal); D75.89 Other specified diseases of blood and blood-forming organs
CPT/HCPCS: 82728; 82746; 83540; 83550

== ENCOUNTER → 2021-10-22 09:38 | Outpatient (BNVA) | payer MEDICARE, MEDICAID, SELFPAY | PROVIDERS: PCP Nurse Practitioner Family; Referring Provider Nurse Practitioner Family; Visit Provider Psychiatry & Neurology Neurology | DX: G20 Parkinson's disease (principal) | CPT/HCPCS: 99214 ==

== ENCOUNTER → 2021-11-26 01:27 | Outpatient (CLI) | payer MEDICARE, MEDICAID, SELFPAY ==
--- NOTE | 2021-11-26 10:30 | ST.MBS ---
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 Nurses control meds, laundry, housekeeping, meals. Sister in the area who is involved in his care. No EXTENSION SPECIALIST on staff. Cognitive Hx: none known Hx of prior EXTENSION SPECIALIST services: followed at [facility] by this clinician since 12/2020 Previous Imaging: EGD (2018) revealed Meyer's Esophagus, hiatal hernia IMPRESSIONS: Swallow safety is mildly impaired; swallow efficiency is mildly impaired. Presents with mild, chronic, oropharyngeal dysphagia with esophageal component (previously dx'd, no esophageal components assessed today) likely complicated by hx of Meyer's Esophagus; characterized primarily by delayed initiation of pharyngeal swallow (triggered at pyriform sinus, which indicates decline since last MBSS in Feb 2021), as well as reduced tongue base retraction. Also presenting with mild reduced hyo-laryngeal excursion, diminished pharyngeal stripping wave, and reduced tongue base retraction, resulting in trace penetration of thin liquid residue upon swallow initiation of subsequent trial. Mild-moderate vallecular and pyriform sinus residue (liquids>solids), cleared most effectively with secondaryswallow x1-2; thin liquid wash not very helpful in reducing overall pharyngeal residue of puree/solid trials. Patient appears to be at low-moderate risk for potential aspiration PNA and/or pulmonary compromise and low risk for malnutrition, dehydration. Diet modification is not indicated. Swallow prognosis is good-fair given age, expected progression of swallowing function in context of PD, and pending patient/caregiver training in risk management as outlined, including use of trialed compensatory strategies, exercise as indicated. Patient appears to be a good candidate for behavioral swallow rehabilitation. May also be appropriate for speech assessment to determine candidacy for SPEAK OUT! training for Parkinson's Disease, pending patient's goals of care. Specialist referrals: N/A at this time Ancillary tests: May consider future consult with GI, with consideration of either repeat EGD to identify structural and/or inflammatory lesions in context of documented Meyer?s Esophagus+hiatal hernia (seen in 2018) or High Resolution Esophageal Manometry given mid-esophageal stasis seen with barium tablet today Follow Up: Videofluoroscopic Swallow Study/Modified Barium Swallow Study [VFSS/MBSS] or Fiberoptic Endoscopic Evaluation of Swallow [FEES] to be scheduled within 6-12 months. Note: Best practice indicates routine, repeat VFSS/MBSS for patients diagnosed with PD - Due to the low association between PD patients' self-reported swallowing condition and actual swallowing function, either FEES or VFSS/MBSS is essential for the assessment of dysphagia in PD?(Kin & Beatrice, 2020) ? Diet texture recommendation:? IDDSI Level 7-Regular Solids, 0-Thin Liquids Please see further details at?www.iddsi.org Diet texture modification is per patient's preference; please adjust diet textures at patient's discretion & collaboration with care team. Risk Management:? Behavioral reflux precautions, including upright position during + 90 mins after meals. Small bites Small sips Multiple swallows per bolus (1-2x) with hard swallow to encourage clearance of pharyngeal stasis/residue Control risk factors for aspiration pneumonia via (a) thorough oral hygiene & (b) maintaining physical mobility as tolerated PLAN: Therapy: Recommend subsequent outpatient session with treating EXTENSION SPECIALIST to review results of today's exam and develop treatment plan as appropriate. Goal: TBD pending patient/caregiver interview Follow-up exam: Routine, repeat VFSS/MBSS and/or FEES within 6-12 months. Thank you for allowing me to take part in this patient's care. Please feel free to contact me with any questions/concerns. ----- ALVARO Tolbert arrived on time for today's exam, ambulating via wheelchair but able to transfer to hausted chair with standby assist. He reports he feels his swallowing has declined since last february, citing pharyngeal residue as primary complaint. He also reports that people tell him they have difficulty hearing him. OBJECTIVE Videofluoroscopic Swallow Evaluation (VFSE/MBSS) was conducted in the lateral projection by Speech-Language Pathologist, in collaboration with Radiologist, to evaluate oropharyngeal swallow function. Anatomic view under fluoroscopy: [WFL][Other] PO Barium Contrast Trials Oral barium water-soluble contrast was administered as follows: IDDSI Level 0 Varibar thin liquid (40% w/v) IDDSI Level 4 Varibar pudding/pureed/extremely thick (40% w/v) IDDSI Level 7 Regular Solid: 1/2 walter cracker coated in 3 mL Varibar pudding 13 mm barium tablet taken with Thin Liquids. MBSImP Component Scores: COMPONENT Scale SCORE 1 Lip closure (0-4) 0 Resulted in no labial escape 2 Hold Position (0-3) 0 Maintained a cohesive bolus between tongue to palatal seal 3 Bolus Preparation (0-4) 1 Resulted in slow prolonged chewing/mashing with complete re-collection 4 Bolus Transport (0-4) 0 Was with brisk tongue motion 5 Oral Residue (0-4) 1 Was a trace, lining oral structures 6 Swallow Initiation (0-4) 3 Occurred when the bolus head was in the pyriform sinuses 7 Soft Palate Elevation (0-4) 0 Resulted in no bolus between soft palate and the pharyngeal wall 8 Laryngeal Elevation (0-3) 1 Was decreased with partial superior movement of thyroid cartilage/partial approximation of arytenoids to epiglottic petiole 9 Anterior Hyoid Motion (0-2) 1 Demonstrated partial anterior movement 10 Epiglottic Movement (0-2) 0 Resulted in complete inversion 11 Laryngeal Closure (0-2) 0 Was complete with no air or contrast in laryngeal vestibule 12 Pharyngeal Stripping Wave (0-2) 1 Was present, but diminished 13 Pharyngeal Contraction (0-3) NA 14 PES Opening (0-3) 0 Was completely distended and complete duration with no obstruction of flow 15 Tongue Base Retraction (0-4) 2 Allowed a narrow column of contrast or air between the retracted tongue base and the posterior pharyngeal wall 16 Pharyngeal Residue (0-4) 2 Was a collection of residue within or on pharyngeal structures 17 Esophageal Clearance (0-4) NA Results: COMPONENT Scale SCORE 1 Oral Score (0-18) 4 2 Pharyngeal Score (0-29) 7 3 Esophageal Score (0-4) 0 Dysphagia Outcome and Severity Scale: COMPONENT Scale SCORE 1 LEVEL (1-7) 6 Full PO: Normal Diet - Within functional limits/modified independence Penetration-Aspiration Scale: COMPONENT Scale SCORE 1 Thin liquid (1-8) 2 Contrast entered the airway, remained above the vocal folds, and was ejected from the airway. [address] thick (1-8) NA 3 Honey thick (1-8) NA 4 Pudding thick (1-8) 1 Contrast did not enter the airway 5 Cookie (1-8) 1 Contrast did not enter the airway Trialed Compensatory Strategies & Outcome: Maneuvers Successful (+) Unsuccessful (-) Postures Successful (+) Unsuccessful (-) 3 second Preparatory Set? ? +/- Chin Tuck Posture? ? Cough? ? Posterior Head tilt? Reflexive? Cued? Throat Clear? ? Head Tilt to? Reflexive? Left? Cued? Right? ? Saliva swallow? ? + Head Turn/Rotate to? ? Supraglottic Swallow? Left? ? Super-supraglottic Swallow? Right? ? Bolus Modifications Successful (+) Unsuccessful (-) Delivery/Alternating Consistencies ? Follow with Liquid Wash - ? Follow with Solid Bolus? Delivery/Via Straw? ? Reduced Volume? ? + Reduced Rate of Intake? ? + Increased Viscosity? ? Other:?? ? Thank you for allowing us to take part in this patient's care. Please feel free to contact the [facility] Speech Language Pathology Department with any questions/concerns. Coding CPT Codes MOTION FLUOROSCOPY/SWALLOW - [id number] ([id number])
--- NOTE | 2021-11-26 11:45 | DI.RAD_ITS ---
Exam(s) RF MODIFIED SPEECH BA SWALLOW TECHNIQUE: Modified barium swallow was performed in conjunction with speech pathology. CONTRAST MATERIAL: Oral barium Oral water soluble contrast was administered. COMPARISON: No exams were available for comparison FINDINGS: Note that this is not a dedicated esophagram, distal esophagus not evaluated. There is no evidence of aspiration or penetration of thick or thin liquids or barium coated cookies. Speech pathology report to follow. IMPRESSION: No evidence of aspiration or penetration. RADIATION DOSE DELIVERED: mile Solis=5.51 mGy
[2021-11-26] MEDS: Barium Sulfate Oral Paste 40% W/V 230 ML TUBE PO (11:52)
[2021-11-26] MEDS: Barium Sulfate 700 MG TAB PO (11:52)
[2021-11-26] MEDS: Barium Sulfate 40% W/V 1500 CPS 250 ML BTL PO (11:53)
[2021-11-26] MEDS: Barium Sulfate 40% W/V 240 ML BTL PO (11:53)
[2021-11-26] MEDS: Barium Sulfate 81% w/w for Oral Suspension 148 GM BTL PO (11:54)
== END ==
PROVIDERS: PCP Nurse Practitioner Family; Visit Provider Nurse Practitioner Family
DX: G20 Parkinson's disease (principal); R13.10 Dysphagia, unspecified; R53.1 Weakness
CPT/HCPCS: 92611; 74221

== ENCOUNTER 2021-11-28 13:37 | Outpatient (REF) | payer MEDICARE, MEDICAID, SELFPAY ==
[2021-11-28 15:27] LABS: Abs Immature Grans 0.02 10^3/uL (0.0-0.06); Absolute Basophil Count 0.07 10^3/uL (0.0-0.2); Absolute Eosinophil Count 0.15 10^3/uL (0.0-0.7); Absolute Monocyte Count 0.65 10^3/uL (0.1-0.8); Absolute Neutrophil Count 4.16 10^3/uL (1.2-6.7); Basophils % 0.9; HCT 35.2 % (40.0-50.0); Immature Grans % 0.3; MCH 32.5 pg (27.0-33.0); MCHC 34.1 % (32.0-36.0); MCV 95 fL (80-95); MPV 10.4 fL (8.0-11.0); Monocytes % 8.5; Neutrophils % 54.3; Platelet Count 179 10^3/uL (130-400); RBC 3.69 10^6/uL (4.36-5.78); RDW 11.9 % (11.8-14.1); RDW-SD 41.2 fL; WBC 7.65 10^3/uL (4.4-10.8)
[2021-11-28 15:42] LABS: Hemoglobin A1C 6.3 % (<5.7)
[2021-11-28 16:03] LABS: Ferritin 64 ng/mL (26-388)
[2021-11-28 16:26] LABS: Iron 77 ug/dL (65-175); Total Iron Binding Capacity 241 ug/dL (250-450); Transferrin Sat 32 % (20-55)
== END 2021-11-28 13:38 | disposition home or self-care (01) ==
LOC: NCHCN 13:37
PROVIDERS: PCP Nurse Practitioner Family; Visit Provider Nurse Practitioner Family
DX: D64.9 Anemia, unspecified (principal); D75.89 Other specified diseases of blood and blood-forming organs; E11.9 Type 2 diabetes mellitus without complications
CPT/HCPCS: 82728; 83036; 83540; 83550; 85025

== ENCOUNTER → 2021-12-12 03:19 | Outpatient (CLI) | payer MEDICARE, MEDICAID, SELFPAY ==
--- NOTE | 2021-12-12 07:45 | DI.US_ITS ---
Exam(s) US ABDOMEN LIMITED EXAM: US ABDOMEN LIMITED CLINICAL HISTORY: CIRRHOSIS, K74.60; HEPATIC STEATOSIS, K76.0; H/O HEP C, Z87.19 TECHNIQUE: Ultrasound abdomen performed using standard protocol. COMPARISON: US US ABDOMEN from 01/24/2021 US US ECHOCARDIOGRAM from 01/24/2021 FINDINGS: LIVER: Normal size and echogenicity. No focal liver lesions are seen.. GALLBLADDER: Again noted is cholelithiasis. No evidence of wall thickening. No pericholecystic fluid identified. MCCORMACK'S SIGN: Negative. BILIARY SYSTEM: No intrahepatic or extrahepatic biliary ductal dilation. RIGHT KIDNEY: Normal size. No evidence of renal calculi. No evidence of hydronephrosis. No suspicious renal mass. No cyst identified. PANCREAS: Normal where visualized. ABDOMINAL AORTA AND IVC: Visualized portions normal caliber. ASCITES: None seen. IMPRESSION: Cholelithiasis. No evidence of acute cholecystitis. No visible hepatic steatosis or cirrhotic live r features.. DATA REPOSITORY:
== END ==
PROVIDERS: PCP Nurse Practitioner Family; Visit Provider Nurse Practitioner Family
DX: K80.20 Calculus of gallbladder without cholecystitis without obstruction (principal)
CPT/HCPCS: 76705

== ENCOUNTER → 2021-12-25 09:31 | Outpatient (BNVA) | payer MEDICARE, MEDICAID, SELFPAY | PROVIDERS: PCP Nurse Practitioner Family; Referring Provider Nurse Practitioner Family; Visit Provider Psychiatry & Neurology Neurology | DX: R20.0 Anesthesia of skin (principal); I10 Essential (primary) hypertension; E78.5 Hyperlipidemia, unspecified; E11.9 Type 2 diabetes mellitus without complications; G20 Parkinson's disease | CPT/HCPCS: 99214 ==

== ENCOUNTER → 2022-02-26 12:23 | Outpatient (BNVA) | payer MEDICARE, MEDICAID, SELFPAY | PROVIDERS: PCP Nurse Practitioner Family; Referring Provider Nurse Practitioner Family; Visit Provider Psychiatry & Neurology Neurology | DX: G20 Parkinson's disease (principal); R13.10 Dysphagia, unspecified; R47.1 Dysarthria and anarthria; R49.8 Other voice and resonance disorders; R32 Unspecified urinary incontinence; R20.2 Paresthesia of skin | CPT/HCPCS: 99214 ==

== ENCOUNTER 2022-03-05 15:43 | Outpatient (REF) | payer MEDICARE, MEDICAID, SELFPAY ==
[2022-03-05 14:55] LABS: Abs Immature Grans 0.03 10^3/uL (0.0-0.06); Absolute Basophil Count 0.05 10^3/uL (0.0-0.2); Absolute Eosinophil Count 0.31 10^3/uL (0.0-0.7); Absolute Lymphocyte Count 2.75 10^3/uL (1.2-3.4); Absolute Monocyte Count 0.83 10^3/uL (0.1-0.8); Absolute Neutrophil Count 5.43 10^3/uL (1.2-6.7); Basophils % 0.5; Eosinophils % 3.3; HCT 36.3 % (40.0-50.0); Immature Grans % 0.3; Lymphocytes % 29.3; MCHC 33.1 % (32.0-36.0); MCV 97 fL (80-95); MPV 10.2 fL (8.0-11.0); Monocytes % 8.8; Neutrophils % 57.8; Platelet Count 185 10^3/uL (130-400); RBC 3.75 10^6/uL (4.36-5.78); RDW 12.1 % (11.8-14.1); RDW-SD 43.4 fL
[2022-03-05 15:02] LABS: Iron 64 ug/dL (65-175); Total Iron Binding Capacity 231 ug/dL (250-450); Transferrin Sat 28 % (20-55)
[2022-03-05 15:14] LABS: ALT 6 U/L (16-63); AST 12 U/L (15-37); Albumin 3.8 g/dL (3.4-5.0); Alkaline Phosphatase 57 U/L (46-116); Anion Gap 7.3 mmol/L (3-11); BUN 23 mg/dL (7-18); Bilirubin, Total 0.7 mg/dL (0.2-1.0); CO2 28.7 mmol/L (21.0-32.0); CREATININE 1.5 mg/dL (0.70-1.30); Calcium 9.2 mg/dL (8.5-10.1); Chloride 103 mmol/L (98-107); Estimated GFR 47.06 (mL/min/1.73m2); Ferritin 100 ng/mL (26-388); Glucose 137 mg/dL (74-106); Potassium 4.5 mmol/L (3.5-5.1); Sodium 139 mmol/L (136-145); Total Protein 7.3 g/dL (6.4-8.2)
== END 2022-03-05 15:44 | disposition home or self-care (01) ==
LOC: NCHCN 15:43
PROVIDERS: PCP Nurse Practitioner Family; Visit Provider Nurse Practitioner Family
DX: D64.9 Anemia, unspecified (principal); D75.89 Other specified diseases of blood and blood-forming organs; I10 Essential (primary) hypertension; K74.60 Unspecified cirrhosis of liver
CPT/HCPCS: 80053; 82728; 83540; 83550; 85025

== ENCOUNTER 2022-04-02 15:51 | Outpatient (REF) | payer MEDICARE, MEDICAID, SELFPAY ==
[2022-04-02 16:10] LABS: Anion Gap 6.6 mmol/L (3-11); BUN 18 mg/dL (7-18); CO2 29.4 mmol/L (21.0-32.0); CREATININE 1.4 mg/dL (0.70-1.30); Calcium 8.9 mg/dL (8.5-10.1); Chloride 104 mmol/L (98-107); Estimated GFR 51.13 (mL/min/1.73m2); Glucose 139 mg/dL (74-106); Potassium 4.4 mmol/L (3.5-5.1); Sodium 140 mmol/L (136-145)
== END 2022-04-02 15:52 | disposition home or self-care (01) ==
LOC: NCHCN 15:51
PROVIDERS: PCP Nurse Practitioner Family; Visit Provider Nurse Practitioner Family
DX: I10 Essential (primary) hypertension (principal); E11.9 Type 2 diabetes mellitus without complications
CPT/HCPCS: 80048

== ENCOUNTER 2022-04-30 13:19 | Outpatient (REF) | payer MEDICARE, MEDICAID, SELFPAY ==
[2022-04-30 10:52] LABS: Anion Gap 7.2 mmol/L (3-11); BUN 21 mg/dL (7-18); CO2 28.8 mmol/L (21.0-32.0); CREATININE 1.2 mg/dL (0.70-1.30); Calcium 9.1 mg/dL (8.5-10.1); Chloride 105 mmol/L (98-107); Estimated GFR 61.52 (mL/min/1.73m2); Glucose 170 mg/dL (74-106); Potassium 4.3 mmol/L (3.5-5.1); Sodium 141 mmol/L (136-145)
== END 2022-04-30 13:20 | disposition home or self-care (01) ==
LOC: NCHCN 13:19
PROVIDERS: PCP Nurse Practitioner Family; Visit Provider Nurse Practitioner Family
DX: I10 Essential (primary) hypertension (principal)
CPT/HCPCS: 80048

== ENCOUNTER → 2022-04-30 13:50 | Outpatient (BNVA) | payer MEDICARE, MEDICAID, SELFPAY | PROVIDERS: PCP Nurse Practitioner Family; Referring Provider Nurse Practitioner Family; Visit Provider Psychiatry & Neurology Neurology | DX: G20 Parkinson's disease (principal); R13.10 Dysphagia, unspecified; R79.89 Other specified abnormal findings of blood chemistry; R47.1 Dysarthria and anarthria; R20.2 Paresthesia of skin | CPT/HCPCS: 99214 ==

== ENCOUNTER 2022-06-02 11:56 | Outpatient (REF) | payer MEDICARE, MEDICAID, SELFPAY ==
[2022-06-02 12:49] LABS: HCT 37.3 % (40.0-50.0); HGB 12.4 g/dL (13.5-17.5); MCHC 33.2 % (32.0-36.0); MCV 96 fL (80-95); MPV 10.2 fL (8.0-11.0); Platelet Count 175 10^3/uL (130-400); RBC 3.88 10^6/uL (4.36-5.78); RDW 11.8 % (11.8-14.1); RDW-SD 41.3 fL
[2022-06-02 13:23] LABS: Iron 94 ug/dL (65-175); Total Iron Binding Capacity 244 ug/dL (250-450); Transferrin Sat 39 % (20-55)
[2022-06-02 13:36] LABS: Ferritin 79 ng/mL (26-388)
== END 2022-06-02 11:57 | disposition home or self-care (01) ==
LOC: NCHCN 11:56
PROVIDERS: PCP Nurse Practitioner Family; Visit Provider Nurse Practitioner Family
DX: D64.9 Anemia, unspecified (principal); D75.89 Other specified diseases of blood and blood-forming organs
CPT/HCPCS: 85027; 82728; 83540; 83550

== ENCOUNTER 2022-06-16 02:22 | Outpatient (CLI) | payer MEDICARE, MEDICAID, SELFPAY ==
[2022-06-16 18:18] LABS: PSA, Diagnostic 1.2 ng/mL (<=6.5)
== END 2022-06-16 02:23 | disposition home or self-care (01) ==
LOC: LBO 02:22
PROVIDERS: PCP Nurse Practitioner Family; Visit Provider Nurse Practitioner Gerontology
DX: N42.89 Other specified disorders of prostate (principal); R97.20 Elevated prostate specific antigen [PSA]
CPT/HCPCS: 36415; 84153

== ENCOUNTER → 2022-06-23 10:12 | Outpatient (BNVA) | payer MEDICARE, MEDICAID, SELFPAY | PROVIDERS: PCP Nurse Practitioner Family; Referring Provider Nurse Practitioner Family; Visit Provider Nurse Practitioner Gerontology | DX: R97.20 Elevated prostate specific antigen [PSA] (principal); N40.1 Benign prostatic hyperplasia with lower urinary tract symptoms; R39.89 Other symptoms and signs involving the genitourinary system | CPT/HCPCS: 51798; 81003; 99213 ==

== ENCOUNTER → 2022-07-09 14:24 | Outpatient (BNVA) | payer MEDICARE, MEDICAID, SELFPAY | PROVIDERS: PCP Nurse Practitioner Family; Visit Provider Psychiatry & Neurology Neurology | DX: R32 Unspecified urinary incontinence (principal); R20.2 Paresthesia of skin; G20 Parkinson's disease; R13.10 Dysphagia, unspecified; R49.8 Other voice and resonance disorders; R47.1 Dysarthria and anarthria | CPT/HCPCS: 99214 ==

== ENCOUNTER 2022-08-11 01:28 | Outpatient (CLI) | payer MEDICARE, MEDICAID, SELFPAY ==
--- NOTE | 2022-08-11 | DI.US_ITS ---
Exam(s) US ABDOMEN LIMITED EXAM: US ABDOMEN LIMITED CLINICAL HISTORY: F/U CIRRHOSIS,K74.60,STEATOSIS OF LIVER,K76.0,H/O HEP C,Z87.19,HEPATITIS,K7 TECHNIQUE: Ultrasound abdomen performed using standard protocol. COMPARISON: US US ABDOMEN LIMITED from 12/12/2021 FINDINGS: PANCREAS: Normal where visualized. LIVER: Normal. Hepatopedal flow in the Portal Vein. The liver measures in 15.8 cm length. GALLBLADDER:Gallstones are present. No evidence of wall thickening. No pericholecystic fluid identif ied. BILIARY SYSTEM: Common bile duct measures < 7 mm. No intrahepatic biliary ductal dilation. MCCORMACK'S SIGN: Negative. RIGHT KIDNEY: Kidney is normal in size. No evidence of renal calculi. No evidence of hydronephrosis. No renal mass or cyst identified. ASCITES: None seen. IMPRESSION: 1. Normal sonographic appearance of the liver. 2. Cholelithiasis. DATA REPOSITORY:
== END 2022-08-11 01:48 ==
LOC: DI 01:28
PROVIDERS: PCP Nurse Practitioner Family; Visit Provider Nurse Practitioner Family
DX: K74.60 Unspecified cirrhosis of liver (principal); K76.0 Fatty (change of) liver, not elsewhere classified; Z87.19 Personal history of other diseases of the digestive system
CPT/HCPCS: 76705

== ENCOUNTER → 2022-09-11 09:48 | Outpatient (BNVA) | payer MEDICARE, MEDICAID, SELFPAY | PROVIDERS: PCP Nurse Practitioner Family; Referring Provider Nurse Practitioner Family; Visit Provider Psychiatry & Neurology Neurology | DX: G20 Parkinson's disease (principal); R13.10 Dysphagia, unspecified; R20.2 Paresthesia of skin; R49.8 Other voice and resonance disorders; R47.1 Dysarthria and anarthria; R32 Unspecified urinary incontinence; R20.0 Anesthesia of skin | CPT/HCPCS: 99214 ==

== ENCOUNTER 2022-09-17 11:53 | Outpatient (REF) | payer MEDICARE, MEDICAID, SELFPAY ==
[2022-09-17 10:13] LABS: Abs Immature Grans 0.03 10^3/uL (0.0-0.06); Absolute Basophil Count 0.04 10^3/uL (0.0-0.2); Absolute Eosinophil Count 0.12 10^3/uL (0.0-0.7); Absolute Lymphocyte Count 2.29 10^3/uL (1.2-3.4); Absolute Monocyte Count 0.52 10^3/uL (0.1-0.8); Basophils % 0.6; Eosinophils % 1.7; HCT 34.9 % (40.0-50.0); HGB 12.1 g/dL (13.5-17.5); Immature Grans % 0.4; Lymphocytes % 33.2; MCH 32.8 pg (27.0-33.0); MCHC 34.7 % (32.0-36.0); MCV 95 fL (80-95); Monocytes % 7.5; Neutrophils % 56.6; Platelet Count 215 10^3/uL (130-400); RBC 3.69 10^6/uL (4.36-5.78); RDW 12.1 % (11.8-14.1); RDW-SD 42.5 fL; Reticulocyte 1.6 % (0.5-2.4)
[2022-09-17 10:16] LABS: Iron 58 ug/dL (65-175); Total Iron Binding Capacity 254 ug/dL (250-450); Transferrin Sat 23 % (20-55)
[2022-09-17 10:40] LABS: Hemoglobin A1C 5.9 % (<5.7); Vitamin D 25 Total 59.1 ng/mL (30-100)
[2022-09-17 10:59] LABS: ALT 14 U/L (16-63); AST 9 U/L (15-37); Albumin 3.9 g/dL (3.4-5.0); Alkaline Phosphatase 51 U/L (46-116); Anion Gap 9.3 mmol/L (3-11); BUN 21 mg/dL (7-18); Bilirubin, Total 0.7 mg/dL (0.2-1.0); CO2 28.7 mmol/L (21.0-32.0); CREATININE 1.2 mg/dL (0.70-1.30); Calcium 9.3 mg/dL (8.5-10.1); Chloride 105 mmol/L (98-107); Estimated GFR 61.52 (mL/min/1.73m2); Ferritin 96 ng/mL (26-388); Glucose 101 mg/dL (74-106); Potassium 4.3 mmol/L (3.5-5.1); Sodium 143 mmol/L (136-145); Total Protein 7.5 g/dL (6.4-8.2); Vitamin B12 886 pg/mL (193-986)
[2022-09-17 11:01] LABS: Folate > 20.0 ng/mL (8.6-20.0)
== END 2022-09-17 11:54 | disposition home or self-care (01) ==
LOC: NCHCN 11:53
PROVIDERS: PCP Nurse Practitioner Family; Visit Provider Nurse Practitioner Family
DX: K75.4 Autoimmune hepatitis (principal); D64.9 Anemia, unspecified; E11.9 Type 2 diabetes mellitus without complications; E55.9 Vitamin D deficiency, unspecified; D75.89 Other specified diseases of blood and blood-forming organs; E53.8 Deficiency of other specified B group vitamins; K74.60 Unspecified cirrhosis of liver; I10 Essential (primary) hypertension
CPT/HCPCS: 80053; 82306; 82607; 82728; 82746; 83036; 83540; 83550; 85025; 85045

== ENCOUNTER 2022-10-08 03:13 | Outpatient (CLI) | payer MEDICARE, MEDICAID, SELFPAY ==
--- NOTE | 2022-10-08 14:57 | ST.MBS_ITS ---
Date of Service Date of service: 10/08/22 Time of Service: 14:58 Modified Barium Swallow Study Findings: Video fluoroscopic Swallowing Evaluation (VFSE) / Modified Barium Swallow Study (MBSS) Speech Language Pathology Report Patient referred for VFSE/MBSS from Dr. Dumont given need for periodic monitoring of swallow function in setting of Parkinson's Disease. HPI & Patient report of function: Patient is a 77 y/o M with Parkinson?s Disease and Meyer?s esophagus, history of auto-immune Hepatitis w/ cirrhosis, heart murmer, deviated septum, DMII; reported difficulty swallowing in setting of PD. He recently completed SPEAK OUT! training for Parkinson's Disease. He reports this date that he is coughing more frequently during meals with both food and drink, feels as though his swallowing is less coordinated than it was a few months ago. PFSH Medical History? Aortic valve disorder Biceps tendon rupture BPH (benign prostatic hyperplasia) Depression Diabetes mellitus Dietary vitamin B12 deficiency anemia Gallstones H/O cardiac murmur Hepatitis C Hiatal hernia Hip pain Hypercholesterolemia Hypogonadism Jaundice Low back pain Obesity Osteopenia Pedal edema Rotator cuff tear, right Steatosis of liver Steroid myopathy Tubular adenoma of colon Vitamin D deficiency Surgical History? H/O esophagogastroduodenoscopy (~12/2017) History of colonoscopy (~12/2017) IMPRESSIONS: Swallow safety is mildly impaired; swallow efficiency is mildly impaired.? Presents with mild, chronic, oropharyngeal dysphagia with esophageal component (previously dx'd, esophageal components minimally assessed today) likely c omplicated by hx of Meyer's Esophagus. Interestingly, patient's pharyngeal initiation has improved to WFL, as well as mild improvements in tongue base retraction, whereas epiglottic inversion and UES distension are reduced. Functionally, his overall severity is largely unchanged, though he does appear with reduced frequency of laryngeal penetration due to decreased severity of liquid pharyngeal residue, most likely a result of improved timeliness of pharyngeal onset. It is interesting that he complains of worse swallowing function this date, I wonder if the timing of his medications with his meals has something to do with it, as he states he frequently has trouble during lunchtime which is likely to be at the tail end of his morning dose of sinemet. Patient appears to be at low-moderate risk for potential aspiration PNA and/or pulmonary compromise and low risk for malnutrition, dehydration. Diet modification is not indicated. Swallow prognosis is good-fair given age, expected progression of swallowing function in context of PD, previous participation in SPEAK OUT! training with continued daily home practice, and pending patient/caregiver training in risk management as outlined, including use of trialed compensatory strategies, exercise as indicated. Specialist referrals: N/A at this time Ancillary tests: May consider future consult with GI, with consideration of either repeat EGD to identify structural and/or inflammatory lesions in context of documented Meyer?s Esophagus+hiatal hernia (seen in 2018) or High Resolution Esophageal Manometry given mid-esophageal stasis seen with barium tablet today Follow Up: Videofluoroscopic Swallow Study/Modified Barium Swallow Study VFSS/MBSS to be scheduled within 6-12 months. Note: Best practice indicates routine, repeat VFSS/MBSS for patients diagnosed with PD - Due to the low association between PD patients' self-reported swallowing condition and actual swallowing function, either FEES or VFSS/MBSS is essential for the assessment of dysphagia in PD?(Kin & Beatrice, 2020) ? RECOMMENDATIONS: Diet Texture Recommendation:? IDDSI LEVEL SOLIDS 7-Regular/Easy to Chew Solids LIQUIDS 0-Thin Liquids Please see further details at?www.iddsi.org [email or web address].iddsi.org/ MEDICATIONS Whole with 0 - Thin Liquids or 4 - Puree Diet texture modification is per patient's preference; please adjust diet textures at patient's discretion & collaboration with care team. Do not alter medications (e.g., cut)? without advice from your MD or pharmacist. Risk Management:? Behavioral reflux precautions, including upright position during + 90 mins after meals. Small bites Small sips Multiple swallows per bolus (1-2x) with hard swallow to encourage clearance of pharyngeal stasis/residue Control risk factors for aspiration pneumonia via (a) thorough oral hygiene & (b) maintaining physical mobility as tolerated PLAN: PLAN: Follow-up exam: Routine, repeat VFSS/MBSS and/or FEES within 6-12 months. Thank you for allowing me to take part in this patient's care. Please feel free to contact me with any questions/concerns. ----- OBJECTIVE Videofluoroscopic Swallow Evaluation (VFSE/MBSS) was conducted in the lateral and [id number] projection by Speech-Language Pathologist, in collaboration with Radiologist, to evaluate oropharyngeal swallow function. Anatomic view under fluoroscopy: WFL PO Barium Contrast Trials Oral barium water-soluble contrast was administered as follows: IDDSI Level 0 Varibar thin liquid (40% w/v) IDDSI Level 2 Varibar nectar thick/mildly thick liquid (40% w/v) IDDSI Level 4 Varibar pudding/pureed/extremely thick (40% w/v) IDDSI Level 7 Regular Solid: 1/2 walter cracker coated in 3 mL Varibar pudding 13 mm barium tablet taken with Thin Liquids. MBSImP Component Scores: COMPONENT Scale SCORE Previous SCORE 1 Lip closure (0-4) 0 Resulted in no labial escape 0 Resulted in no labial escape 2 Hold Position (0-3) 0 Maintained a cohesive bolus between tongue to palatal seal 0 Maintained a cohesive bolus between tongue to palatal seal 3 Bolus Preparation (0-4) 1 Resulted in slow prolonged chewing/mashing with complete re-collection 1 Resulted in slow prolonged chewing/mashing with complete re-collection 4 Bolus Transport (0-4) 1* Demonstrated delayed initiation of tongue motion 0 Was with brisk tongue motion 5 Oral Residue (0-4) 1 Was a trace, lining oral structures 1 Was a trace, devonte ing oral structures 6 Swallow Initiation (0-4) 0 Occurred as bolus head at posterior angle of th e mandibular ramus 3 Occurred when the bolus head was in the pyriform sinuses 7 Soft Palate Elevation (0-4) 0 Resulted in no bolus between soft palate and t he pharyngeal wall 0 Resulted in no bolus between soft palate and the pharyngeal wall 8 Laryngeal Elevation (0-3) 1 Was decreased with partial superior movement of thyroid cartilage/partial approximation of arytenoids to epiglottic petiole 1 Was decreased with partial superior movement of thyroid cartilage/partial approximation of arytenoids to epiglottic petiole 9 Anterior Hyoid Motion (0-2) 1 Demonstrated partial anterior movement 1 Demonstrated partial anterior movement 10 Epiglottic Movement (0-2) 1* Resulted in partial inversion 0 Resulted in complete inversion 11 Laryngeal Closure (0-2) 0 Was complete with no air or contrast in laryngeal vestibule 0 Was complete with no air or contrast in laryngeal vestibule 12 Pharyngeal Stripping Wave (0-2) 1 Was present, but diminished 1 Was presen t, but diminished 13 Pharyngeal Contraction (0-3) 1 Was incomplete, with presence of pseudodiverticulae NA 14 PES Opening (0-3) 1* Demonstrated partial distension/partial duration, with partial obstruction of flow 0 Was completely distended and complete duration with no obstruction of flow 15 Tongue Base Retraction (0-4) 1 Allowed a trace column of contrast or air between tongue base and pharyngeal wall 2 Allowed a narrow column of contrast or air between the retracted tongue base and the posterior pharyngeal wall 16 Pharyngeal Residue (0-4) 2 Was a collection of residue within or on pharyngeal structures 2 Was a collection of residue within or on pharyngeal structures 17 Esophageal Clearance (0-4) 2 Resulted in esophageal retention with retrogra de flow below pharyngoesophageal segment NA * indicates parameters with decreased functional score over previous exam indicates parameters with increased functional score over previous exam Results: COMPONENT Scale SCORE Previous SCORE 1 Oral Score (0-18) 2 4 2 Pharyngeal Score (0-29) 8 7 3 Esophageal Score (0-4) 2 0 Dysphagia Outcome and Severity Scale: COMPONENT Scale SCORE Previous SCORE 1 LEVEL (1-7) 5 Full PO: Modified Diet and/or [place] - Mild dysphagia; Distant supervision may need 1 diet consistency restricted 6 Full PO: Normal Diet - Within functional limits/modified independence Penetration-Aspiration Scale: COMPONENT Scale SCORE Previous SCORE 1 Thin liquid (1-8) 2 Contrast entered the airway, remained above the vocal folds, and was ejected from the airway. 2 Contrast entered the airway, remained above the vocal folds, and was ejected from the airway. 2 [place] thick (1-8) 1 Contrast did not enter the airway 1 Contrast did not enter the airway 3 Honey thick (1-8) NA NA 4 Pudding thick (1-8) 1 Contrast did not enter the airway 1 Contrast did not enter the airway 5 Cookie (1-8) 1 Contrast did not enter the airway 1 Contrast did not enter t he airway Trialed Compensatory Strategies & Outcome: Maneuvers Successful (+) Unsuccessful (-) Postures Successful (+) Unsuccessful (-) 3 second Preparatory Set? ? +/- Chin Tuck Posture? ? Cough? ? Posterior Head tilt? Reflexive? Cued? Throat Clear? ? Head Tilt to? Reflexive? Left? Cued? Right? ? Saliva swallow? ? + Head Turn/Rotate to? ? Supraglottic Swallow? Left? ? Super-supraglottic Swallow? Right? ? Bolus Modifications Successful (+) Unsuccessful (-) Delivery/Alternating Consistencies F ? Follow with Liquid Wash + ? Follow with Solid Bolus? Delivery/Via Straw? ? Reduced Volume? ? + Reduced Rate of Intake? ? + Increased Viscosity? ? +/- Other:?? ? Thank you for allowing us to take part in this patient's care. Please feel free to contact the [facility] Speech Language Pathology Department with any questions/concerns. Coding CPT Codes MOTION FLUOROSCOPY/SWALLOW - [id number] ([id number])
--- NOTE | 2022-10-08 14:57 | DI.RAD_ITS ---
Exam(s) RF MODIFIED SPEECH BA SWALLOW TECHNIQUE: Modified barium swallow was performed in conjunction with speech pathology. CONTRAST MATERIAL: Multiple consistencies oral barium contrast was administered. Barium tablet als o administered COMPARISON: No exams were available for comparison FINDINGS: Note that this is not a dedicated esophagram, distal esophagus not evaluated. There is no evidence of aspiration. Mild vallecular and piriform sinus residue. Speech pathology report to follow. . . . IMPRESSION: No evidence of aspiration. RADIATION DOSE DELIVERED: mile Solis=5.56 mGy
[2022-10-08] MEDS: Barium Sulfate 700 MG TAB PO (15:07)
[2022-10-08] MEDS: Barium Sulfate 40% W/V 240 ML BTL 40 ML PO (15:08)
[2022-10-08] MEDS: Barium Sulfate 81% w/w for Oral Suspension 148 GM BTL 48 GM PO (15:09)
[2022-10-08] MEDS: Barium Sulfate Oral Paste 40% W/V 230 ML TUBE 20 ML PO (15:11)
== END 2022-10-08 03:33 ==
LOC: DI 03:13
PROVIDERS: PCP Nurse Practitioner Family; Visit Provider Psychiatry & Neurology Neurology
DX: G20 Parkinson's disease (principal); R13.12 Dysphagia, oropharyngeal phase
CPT/HCPCS: 92611; 74221

== ENCOUNTER → 2022-11-26 14:33 | Outpatient (BNVA) | payer MEDICARE, MEDICAID, SELFPAY | PROVIDERS: PCP Nurse Practitioner Family; Visit Provider Psychiatry & Neurology Neurology | DX: G20 Parkinson's disease (principal); R13.10 Dysphagia, unspecified; R20.2 Paresthesia of skin; R49.8 Other voice and resonance disorders; R47.1 Dysarthria and anarthria; I10 Essential (primary) hypertension; E11.9 Type 2 diabetes mellitus without complications | CPT/HCPCS: 99214 ==

== ENCOUNTER 2022-12-03 18:34 | Outpatient (REF) | payer MEDICARE, MEDICAID, SELFPAY ==
[2022-12-03 16:52] LABS: Abs Immature Grans 0.02 10^3/uL (0.0-0.06); Absolute Basophil Count 0.05 10^3/uL (0.0-0.2); Absolute Eosinophil Count 0.13 10^3/uL (0.0-0.7); Absolute Lymphocyte Count 2.76 10^3/uL (1.2-3.4); Absolute Neutrophil Count 4.23 10^3/uL (1.2-6.7); Basophils % 0.7; Eosinophils % 1.7; HCT 34.6 % (40.0-50.0); HGB 11.8 g/dL (13.5-17.5); Immature Grans % 0.3; Lymphocytes % 35.9; MCH 32.8 pg (27.0-33.0); MCHC 34.1 % (32.0-36.0); MCV 96 fL (80-95); MPV 10.4 fL (8.0-11.0); Monocytes % 6.5; Neutrophils % 54.9; Platelet Count 181 10^3/uL (130-400); RDW 12.1 % (11.8-14.1); RDW-SD 42.8 fL; WBC 7.69 10^3/uL (4.4-10.8)
[2022-12-03 17:28] LABS: Iron 75 ug/dL (65-175)
[2022-12-03 17:40] LABS: Ferritin 71 ng/mL (26-388)
== END 2022-12-03 18:35 | disposition home or self-care (01) ==
LOC: NCHCN 18:34
PROVIDERS: PCP Nurse Practitioner Family; Visit Provider Nurse Practitioner Family
DX: D64.9 Anemia, unspecified (principal); D75.89 Other specified diseases of blood and blood-forming organs
CPT/HCPCS: 82728; 83540; 85025

== ENCOUNTER → 2023-01-26 00:17 | Outpatient (CLI) | payer MEDICARE, MEDICAID, SELFPAY ==
--- NOTE | 2023-01-26 | DI.US_ITS ---
Exam(s) US ABDOMEN EXAM: US ABDOMEN CLINICAL HISTORY: BARRETRIP ESOPHAGUS K22.70, 6 MO FU CIRRHOSIS TECHNIQUE: Ultrasound abdomen performed using standard protocol. COMPARISON: US US ABDOMEN LIMITED from 08/11/2022 FINDINGS: ABDOMINAL AORTA AND IVC: Visualized portions normal caliber. PANCREAS: Normal where visualized. LIVER: Mildly echogenic with a nodular surface. Hepatopedal flow in the Portal Vein. The liver measu res 16 cm long. GALLBLADDER:Gallstones are present. BILIARY SYSTEM: Common bile duct measures < 7 mm. No intrahepatic biliary ductal dilation. MCCORMACK'S SIGN: Negative. KIDNEYS: Kidneys are symmetric in size. No evidence of renal calculi. No evidence of hydronephrosis. No renal mass or cyst identified. SPLEEN: Not enlarged. ASCITES: None seen. IMPRESSION: 1. Mild increased echogenicity of the liver which can be seen with fatty infiltration. There is mild nodular contour of the liver which can be seen with hepatic cirrhosis. 2. Cholelithiasis. No evidence of acute cholecystitis sonographically. DATA REPOSITORY:
== END ==
PROVIDERS: PCP Nurse Practitioner Family; Visit Provider Nurse Practitioner Family
DX: K80.20 Calculus of gallbladder without cholecystitis without obstruction (principal); K74.60 Unspecified cirrhosis of liver; K22.70 Barrett's esophagus without dysplasia
CPT/HCPCS: 76700

== ENCOUNTER 2023-02-28 15:51 | Outpatient (REF) | payer MEDICARE, MEDICAID, SELFPAY ==
[2023-02-28 15:59] LABS: Abs Immature Grans 0.01 10^3/uL (0.0-0.06); Absolute Basophil Count 0.07 10^3/uL (0.0-0.2); Absolute Eosinophil Count 0.17 10^3/uL (0.0-0.7); Absolute Lymphocyte Count 2.12 10^3/uL (1.2-3.4); Absolute Monocyte Count 0.66 10^3/uL (0.1-0.8); Absolute Neutrophil Count 3.13 10^3/uL (1.2-6.7); Basophils % 1.1; Eosinophils % 2.8; HCT 33.8 % (40.0-50.0); HGB 11.4 g/dL (13.5-17.5); Immature Grans % 0.2; Lymphocytes % 34.4; MCH 32.8 pg (27.0-33.0); MCHC 33.7 % (32.0-36.0); MCV 97 fL (80-95); MPV 10.1 fL (8.0-11.0); Monocytes % 10.7; Neutrophils % 50.8; Platelet Count 178 10^3/uL (130-400); RBC 3.48 10^6/uL (4.36-5.78); RDW 12.5 % (11.8-14.1); RDW-SD 44.4 fL; Reticulocyte 1.4 % (0.5-2.4); WBC 6.16 10^3/uL (4.4-10.8)
[2023-02-28 16:11] LABS: Iron 40 ug/dL (65-175); Total Iron Binding Capacity 221 ug/dL (250-450); Transferrin Sat 18 % (20-55)
[2023-02-28 16:24] LABS: Ferritin 97 ng/mL (26-388)
== END 2023-02-28 15:52 | disposition home or self-care (01) ==
LOC: NCHCN 15:51
PROVIDERS: PCP Nurse Practitioner Family; Visit Provider Nurse Practitioner Family
DX: D64.9 Anemia, unspecified (principal)
CPT/HCPCS: 82728; 83540; 83550; 85025; 85045

== ENCOUNTER → 2023-03-02 10:39 | Outpatient (BNVA) | payer MEDICARE, MEDICAID, SELFPAY | PROVIDERS: PCP Nurse Practitioner Family; Referring Provider Nurse Practitioner Family; Visit Provider Psychiatry & Neurology Neurology | DX: G20.C Parkinsonism, unspecified (principal); R13.10 Dysphagia, unspecified; R47.1 Dysarthria and anarthria; R20.2 Paresthesia of skin; R49.8 Other voice and resonance disorders; R32 Unspecified urinary incontinence; I10 Essential (primary) hypertension; E11.9 Type 2 diabetes mellitus without complications | CPT/HCPCS: 99214 ==

== ENCOUNTER 2023-03-29 21:23 | Outpatient (REF) | payer MEDICARE, MEDICAID, SELFPAY ==
[2023-03-29 16:30] LABS: Hemoglobin A1C 5.9 % (<5.7)
== END 2023-03-29 21:24 | disposition home or self-care (01) ==
LOC: NCHCN 21:23
PROVIDERS: PCP Nurse Practitioner Family; Visit Provider Nurse Practitioner Family
DX: R73.03 Prediabetes (principal)
CPT/HCPCS: 83036

== ENCOUNTER 2023-06-03 15:20 | Outpatient (REF) | payer MEDICARE, MEDICAID, SELFPAY ==
[2023-06-03 16:53] LABS: Abs Immature Grans 0.03 10^3/uL (0.0-0.06); Absolute Basophil Count 0.06 10^3/uL (0.0-0.2); Absolute Eosinophil Count 0.16 10^3/uL (0.0-0.7); Absolute Lymphocyte Count 2.87 10^3/uL (1.2-3.4); Absolute Monocyte Count 0.66 10^3/uL (0.1-0.8); Absolute Neutrophil Count 4.09 10^3/uL (1.2-6.7); Basophils % 0.8; HCT 33.9 % (40.0-50.0); HGB 11.6 g/dL (13.5-17.5); Immature Grans % 0.4; Lymphocytes % 36.5; MCHC 34.2 % (32.0-36.0); MCV 94 fL (80-95); MPV 10.2 fL (8.0-11.0); Monocytes % 8.4; Neutrophils % 51.9; Platelet Count 208 10^3/uL (130-400); RBC 3.62 10^6/uL (4.36-5.78); RDW 12.1 % (11.8-14.1); RDW-SD 41.6 fL; WBC 7.87 10^3/uL (4.4-10.8)
[2023-06-03 17:33] LABS: ALT 8 U/L (16-63); AST 9 U/L (15-37); Albumin 3.6 g/dL (3.4-5.0); Alkaline Phosphatase 51 U/L (46-116); Anion Gap 11.5 mmol/L (3-11); BUN 20 mg/dL (7-18); Bilirubin, Total 0.8 mg/dL (0.2-1.0); CO2 26.5 mmol/L (21.0-32.0); CREATININE 1.1 mg/dL (0.70-1.30); Calcium 8.9 mg/dL (8.5-10.1); Chloride 105 mmol/L (98-107); Estimated GFR 67.86 (mL/min/1.73m2); Ferritin 101 ng/mL (26-388); Glucose 121 mg/dL (74-106); Potassium 4.2 mmol/L (3.5-5.1); Sodium 143 mmol/L (136-145); Total Protein 7.1 g/dL (6.4-8.2)
[2023-06-03 17:54] LABS: Iron 75 ug/dL (65-175); Total Iron Binding Capacity 231 ug/dL (250-450); Transferrin Sat 32 % (20-55)
[2023-06-04 18:34] LABS: PSA, Diagnostic 1.2 ng/mL (<=6.5)
== END 2023-06-03 15:21 | disposition home or self-care (01) ==
LOC: NCHCN 15:20
PROVIDERS: PCP Nurse Practitioner Family; Visit Provider Nurse Practitioner Family
DX: D64.9 Anemia, unspecified (principal); N40.1 Benign prostatic hyperplasia with lower urinary tract symptoms
CPT/HCPCS: 80053; 82728; 83540; 83550; 84153; 85025

== ENCOUNTER → 2023-06-04 02:49 | Outpatient (CLI) | payer MEDICARE, MEDICAID, SELFPAY ==
--- NOTE | 2023-06-04 | DI.US_ITS ---
Exam(s) US ABDOMEN EXAM: US ABDOMEN CLINICAL HISTORY: K22.70 Meyer's esophagus wo dysplasia,K74.69 other cirrhosis of liver TECHNIQUE: Ultrasound of complete upper abdomen performed using standard protocol. COMPARISON: US US ABDOMEN from 01/26/2023 FINDINGS: There is no ascites evident. LIVER: Liver is hyperechoic indicating steatosis. There no discrete focal hepatic lesions identified . GALLBLADDER/BILIARY: There are shadowing mobile gallstones noted. No gallbladder wall edema nor tamie cholecystic fluid The common hepatic duct isnot dilated, measuring 4mm at the level of griselda hepatis. PANCREAS: There is no evidence of pancreatic mass nor dilatation of the pancreatic duct. SPLEEN: The spleen is not enlarged and there are no intrasplenic lesions evident. KIDNEYS:Kidneys exhibit normal size with no evidence of solid mass, calculus, nor hydronephrosis. No cortical cysts evident. ABDOMINAL AORTA: There is no evidence of abdominal aortic aneurysm. IVC: Normal diameter where visualized. IMPRESSION: 1. Cholelithiasis without evidence of acute cholecystitis nor significant dilatation of the biliary tree. 2. Hepatic steatosis again noted. 3. No other focal right upper quadrant ultrasound findings and there is no ascites evident. DATA REPOSITORY:
== END ==
PROVIDERS: PCP Nurse Practitioner Family; Visit Provider Nurse Practitioner Family
DX: K22.70 Barrett's esophagus without dysplasia (principal)
CPT/HCPCS: 76700

== ENCOUNTER → 2023-06-29 10:13 | Outpatient (BNVA) | payer MEDICARE, MEDICAID, SELFPAY | PROVIDERS: PCP Nurse Practitioner Family; Visit Provider Nurse Practitioner Gerontology | DX: N40.0 Benign prostatic hyperplasia without lower urinary tract symptoms (principal); N42.89 Other specified disorders of prostate; R32 Unspecified urinary incontinence; R97.20 Elevated prostate specific antigen [PSA] | CPT/HCPCS: 51798; 99213 ==

== ENCOUNTER → 2023-07-06 14:37 | Outpatient (BNVA) | payer MEDICARE, MEDICAID, SELFPAY | PROVIDERS: PCP Nurse Practitioner Family; Referring Provider Nurse Practitioner Family; Visit Provider Psychiatry & Neurology Neurology | DX: R13.10 Dysphagia, unspecified (principal); R20.2 Paresthesia of skin; R49.8 Other voice and resonance disorders; R47.1 Dysarthria and anarthria | CPT/HCPCS: 99214 ==

== ENCOUNTER 2023-09-30 16:54 | Outpatient (REF) | payer MEDICARE, MEDICAID, SELFPAY ==
[2023-09-30 19:02] LABS: Calculated LDL 84 mg/dL (<100); Cholesterol 151 mg/dL (<200); HDL Cholesterol 50 mg/dL (40-60); Triglyceride 87 mg/dL (<150)
== END 2023-09-30 16:55 | disposition home or self-care (01) ==
LOC: NCHCN 16:54
PROVIDERS: PCP Nurse Practitioner Family; Visit Provider Nurse Practitioner Family
DX: I10 Essential (primary) hypertension (principal)
CPT/HCPCS: 80061

== ENCOUNTER → 2023-10-05 15:04 | Outpatient (BNVA) | payer MEDICARE, MEDICAID, SELFPAY | PROVIDERS: PCP Nurse Practitioner Family; Referring Provider Nurse Practitioner Family; Visit Provider Psychiatry & Neurology Neurology | DX: R13.10 Dysphagia, unspecified (principal); R20.2 Paresthesia of skin; R49.8 Other voice and resonance disorders; R47.1 Dysarthria and anarthria | CPT/HCPCS: 99214 ==

== ENCOUNTER 2023-10-11 13:04 | Outpatient (REF) | payer MEDICARE, MEDICAID, SELFPAY ==
[2023-10-11 13:32] LABS: Bilirubin Negative (Negative); Blood Negative (Negative); Clarity Clear (Clear); Glucose Negative (Negative); Ketones Negative (Negative); Leukocyte Esterase Negative (Negative); Nitrite Negative (Negative); Urobilinogen 0.2 mg/dL (Up to 0.2)
== END 2023-10-11 13:05 | disposition home or self-care (01) ==
LOC: LBN 13:04
PROVIDERS: PCP Nurse Practitioner Family; Visit Provider Nurse Practitioner Family
DX: N40.1 Benign prostatic hyperplasia with lower urinary tract symptoms (principal)
CPT/HCPCS: 81003

== ENCOUNTER 2023-11-24 02:21 | Outpatient (CLI) | payer MEDICARE, MEDICAID, SELFPAY ==
--- NOTE | 2023-11-24 | DI.US_ITS ---
Exam(s) US ABDOMEN EXAM: US ABDOMEN CLINICAL HISTORY: BARRETTS ESOPHAGUS, K22.70,cirrhosis of liver,k74.69 TECHNIQUE: Ultrasound abdomen performed using standard protocol. COMPARISON: US US ABDOMEN from 06/04/2023 FINDINGS: ABDOMINAL AORTA AND IVC: Visualized portions normal caliber. PANCREAS: Normal where visualized. LIVER: The liver measures 16.2 cm long. The liver is mildly echogenic suggesting hepatic steatosis. No evidence of a hepatic mass is seen sonographically. Hepatopetal flow in the Portal Vein. GALLBLADDER:Gallstones are present. No evidence of wall thickening. No pericholecystic fluid identif ied. BILIARY SYSTEM: Common bile duct measures < 7 mm. No intrahepatic biliary ductal dilation. MCCORMACK'S SIGN: Negative. KIDNEYS: Kidneys are symmetric in size. No evidence of renal calculi. No evidence of hydronephrosis. No renal mass or cyst identified. SPLEEN: Not enlarged. ASCITES: None seen. IMPRESSION: 1. Hepatic steatosis. 2. Cholelithiasis. No sonographic evidence to suggest acute cholecystitis. DATA REPOSITORY:
== END 2023-11-24 02:41 ==
LOC: DI 02:21
PROVIDERS: PCP Nurse Practitioner Family; Visit Provider Nurse Practitioner Family
DX: K22.70 Barrett's esophagus without dysplasia (principal); K74.69 Other cirrhosis of liver
CPT/HCPCS: 76700

== ENCOUNTER 2023-11-25 18:04 | Outpatient (REF) | payer MEDICARE, MEDICAID, SELFPAY ==
[2023-11-25 16:15] LABS: Abs Immature Grans 0.02 10^3/uL (0.0-0.06); Absolute Basophil Count 0.06 10^3/uL (0.0-0.2); Absolute Eosinophil Count 0.13 10^3/uL (0.0-0.7); Absolute Lymphocyte Count 3.02 10^3/uL (1.2-3.4); Absolute Monocyte Count 0.67 10^3/uL (0.1-0.8); Absolute Neutrophil Count 4.06 10^3/uL (1.2-6.7); Basophils % 0.8 %; Eosinophils % 1.6 %; HCT 34.4 % (40.0-50.0); HGB 11.6 g/dL (13.5-17.5); Immature Grans % 0.3 %; Lymphocytes % 37.9 %; MCH 32.5 pg (27.0-33.0); MCHC 33.7 % (32.0-36.0); MCV 96 fL (80-95); MPV 10.3 fL (8.0-11.0); Monocytes % 8.4 %; Platelet Count 184 10^3/uL (130-400); RBC 3.57 10^6/uL (4.36-5.78); RDW 12.1 % (11.8-14.1); WBC 7.96 10^3/uL (4.4-10.8)
[2023-11-25 16:36] LABS: Iron 78 ug/dL (65-175); Total Iron Binding Capacity 249 ug/dL (250-450); Transferrin Sat 31 % (20-55)
[2023-11-25 16:48] LABS: ALT 9 U/L (16-63); AST 6 U/L (15-37); Albumin 3.7 g/dL (3.4-5.0); Alkaline Phosphatase 48 U/L (46-116); BUN 24 mg/dL (7-18); Bilirubin, Total 0.77 mg/dL (0.2-1.0); CREATININE 1.2 mg/dL (0.70-1.30); Calcium 8.7 mg/dL (8.5-10.1); Chloride 104 mmol/L (98-107); Estimated GFR 61.13 (mL/min/1.73m2); Ferritin 86 ng/mL (26-388); Glucose 158 mg/dL (74-106); Sodium 142 mmol/L (136-145)
== END 2023-11-25 18:05 | disposition home or self-care (01) ==
LOC: NCHCN 18:04
PROVIDERS: PCP Nurse Practitioner Family; Visit Provider Nurse Practitioner Family
DX: D64.9 Anemia, unspecified (principal); R73.03 Prediabetes
CPT/HCPCS: 80053; 82728; 83036; 83540; 83550; 85025

== ENCOUNTER → 2023-12-15 10:31 | Outpatient (BNVA) | payer MEDICARE, MEDICAID, SELFPAY | PROVIDERS: PCP Nurse Practitioner Family; Referring Provider Nurse Practitioner Family; Visit Provider Nurse Practitioner Gerontology | DX: N40.0 Benign prostatic hyperplasia without lower urinary tract symptoms (principal); N42.89 Other specified disorders of prostate; R97.20 Elevated prostate specific antigen [PSA] | CPT/HCPCS: 51798; 99213 ==

== ENCOUNTER 2023-12-30 01:00 | Outpatient (CLI) | payer MEDICARE, MEDICAID, SELFPAY ==
[2023-12-30] MEDS: Barium Sulfate Oral Paste 40% W/V 230 ML TUBE PO (15:12)
[2023-12-30] MEDS: Barium Sulfate 700 MG TAB PO (15:12)
[2023-12-30] MEDS: Barium Sulfate 40% W/V 240 ML BTL PO (15:13)
[2023-12-30] MEDS: Barium Sulfate 81% w/w for Oral Suspension 148 GM BTL PO (15:16)
--- NOTE | 2023-12-30 15:22 | DI.RAD_ITS ---
Exam(s) RF MODIFIED SPEECH BA SWALLOW TECHNIQUE: Modified barium swallow was performed in conjunction with speech pathology. CONTRAST MATERIAL: Oral barium Oral water soluble contrast was administered. COMPARISON: No exams were available for comparison FINDINGS: Fluoroscopy was provided during modified barium swallow study performed in conjunction with the [facility] h therapist. The radiologist was present in the fluoroscopy suite for this entire procedure. See separate speech therapist report for details. IMPRESSION: Total fluoroscopy time 4 minutes/18 seconds RADIATION DOSE DELIVERED: mile Solis=19.7 mGy
--- NOTE | 2023-12-30 15:48 | ST.MBS_ITS ---
Date of Service Date of service: 12/30/23 Time of Service: 15:48 Modified Barium Swallow Study Findings: Video fluoroscopic Swallowing Evaluation (VFSE) / Modified Barium Swallow Study (MBSS) Speech Language Pathology Report Patient referred for VFSE/MBSS from Dr. Dumont (Neurology) given swallow decline in setting of Parkinson's Disease. 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 He completed SPEAK OUT! training for Parkinson's Disease. He reports this date that he is coughing more than he used to, and that this occurs particularly in the morning at breakfast. This can happen with both liquids and solids. He also notes that he has been waking up with more phlegm and has been coughing a lot all morning, even before breakfast. It takes him extra time to clear phlegm from his throat first thing in the morning. IMPRESSIONS: Swallow safety is impaired; swallow efficiency is impaired. Moderate oropharyngeal and esophageal dysphagia. Characterized primarily by reduced global pharyngeal movement, especially reduced epiglottic inversion, reduced anterior hyoid excursion and reduced PES opening, resulting in deep scant penetration of liquids to the level of the vocal folds. Only trace aspiration occurred with liquids, this tended to happen at the height of the swallow but upon completion and opening of the airway material would return to larynx with exhale (respiratory/swallow pattern remains intact spontaneously). 1-2x instances of trace aspiration below level of vocal cords was cleared with cued throat clear. Also noting esophgeal retention of barium tablet as well as other consistencies, as well as retrograde flow in mid- esophagus (no retrograde flow through PES). Although there is some airway concern, risk can be mitigated with strategies and excellent oral care habits. Patient does not appear sensate to penetrated/aspirated material and given the volume/degree of airway invasion, I suspect his reported increase in coughing is moreso related to referred sensation from known esopahgeal dysphagia (Emyer's esophagus) and/or secretion management issues overnight. Nonetheless, this study does demonstrate some progression of pharyngeal esophagael symptoms. Patient is agreeable to participate in 2-3 additional sessions with DELIVERY DIRECTOR to initiate further HEP. He is not interested in resuming SPEAK OUT! program but he is willing to do some oral-pharyngeal excercises. Patient appears to be at mild risk for potential aspiration PNA and/or pulmonary compromise and mild risk for malnutrition, mild risk for dehydration. May benefit from medication options to decrease saliva buildup overnight. Diet modification is indicated; non-oral nutrition is not indicated. Swallow prognosis is guarded given: Positive prognostic factors: Time since onset, Motivation, Cognitive status, Effectiveness of trialed compensatory strategies, Negative prognostic factors: Age, Degenerative nature of etiology, multifactorial dysphagia including esophageal factors. and pending patient/caregiver training in risk management as outlined, including use of trialed compensatory strategies. Patient appears to be a good candidate for behavioral swallow rehabilitation. Follow Up: Videofluoroscopic Swallow Study/Modified Barium Swallow Study VFSS/MBSS to be scheduled within 6-12 months. Note: Best practice indicates routine, repeat VFSS/MBSS for patients diagnosed with PD - Due to the low association between PD patients' self-reported swallowing condition and actual swallowing function, either FEES or VFSS/MBSS is essential for the assessment of dysphagia in PD?(Kin & Beatrice, 2020) RECOMMENDATIONS: Diet Texture Recommendation:? IDDSI LEVEL SOLIDS 6-Soft & Bite-Sized Solids LIQUIDS 0-Thin Liquids Please see further details at?www.iddsi.org http://www.iddsi.org/ MEDICATIONS Whole with 4-Puree, followed by sip 0-Thin Liquids Diet texture modification is per patient's preference; please adjust diet textures at patient's discretion & collaboration with care team. Do not alter medications (e.g., cut)? without advice from your MD or pharmacist. Risk Management Strategies:? Behavioral reflux precautions, including upright position during + 90 mins after meals. Small bites, approx [id number] Very small sips, approx 5mL / teaspoon Multiple swallows per bolus to encourage clearance of pharyngeal stasis/residue Gentle throat clear after sips liquid Control risk factors for aspiration pneumonia via (a) thorough oral hygiene & (b) maintaining physical mobility as tolerated PLAN: Therapy: Recommend subsequent outpatient session with DELIVERY DIRECTOR to review results of today's exam and develop treatment plan as appropriate. May consider the following: Targeted Oropharyngeal Exercise per treating DELIVERY DIRECTOR , Further Compensatory Strategy Training, Further Training/Education in Risk Management, Training in RMST Program, Further Counseling re: Options for maintaining quality of life in context of dysphagia presentation Goals: TBD pending patient/caregiver interview ----- OBJECTIVE Videofluoroscopic Swallow Evaluation (VFSE/MBSS) was conducted in the lateral[ and [id number]] projection by Speech-Language Pathologist, in collaboration with Radiologist, to evaluate oropharyngeal swallow function. Anatomic view under fluoroscopy: Largely WFL, some age related spinal and postural changes noted confirmed verbally by radiologist PO Barium Contrast Trials Oral barium water-soluble contrast was administered as follows: IDDSI Level 0 Varibar thin liquid (40% w/v) IDDSI Level 2 Varibar nectar thick/mildly thick liquid (40% w/v) IDDSI Level 4 Varibar pudding/pureed/extremely thick (40% w/v) IDDSI Level 7 Regular Solid: 1/2 walter cracker coated in 3 mL Varibar pudding 13 mm barium tablet taken with Puree MBSImP Component Scores: l COMPONENT Scale SCORE Previous SCORE 1 Lip closure (0-4) 0 Resulted in no labial escape 0 Resulted in no labial escape 2 Hold Position (0-3) 0 Maintained a cohesive bolus between tongue to palatal seal 0 Maintained a cohesive bolus between tongue to palatal seal 3 Bolus Preparation (0-4) 1 Resulted in slow prolonged chewing/mashing with complete re-collection 1 Resulted in slow prolonged chewing/mashing with complete re-collection 4 Bolus Transport (0-4) 2 Was with slowed tongue motion 1 Demonstrated delaye d initiation of tongue motion 5 Oral Residue (0-4) 1 Was a trace, lining oral structures 1 Was a trace, devonte ing oral structures 6 Swallow Initiation (0-4) 1 Occurred when the bolus head was in valleculae 0 Occurred as bolus head at posterior angle of the mandibular ramus 7 Soft Palate Elevation (0-4) 0 Resulted in no bolus between soft palate and t he pharyngeal wall 0 Resulted in no bolus between soft palate and the pharyngeal wall 8 Laryngeal Elevation (0-3) 1 Was decreased with partial superior movement of thyroid cartilage/partial approximation of arytenoids to epiglottic petiole 1 Was decreased with partial superior movement of thyroid cartilage/partial approx imation of arytenoids to epiglottic petiole 9 Anterior Hyoid Motion (0-2) 1 Demonstrated partial anterior movement 1 De monstrated partial anterior movement 10 Epiglottic Movement (0-2) 1 Resulted in partial inversion 1 Resulted in partial inversion 11 Laryngeal Closure (0-2) 1 Was incomplete with narrow a column of air/contra st in laryngeal vestibule 0 Was complete with no air or contrast in laryngeal vestibule 12 Pharyngeal Stripping Wave (0-2) 1 Was present, but diminished 1 Was presen t, but diminished 13 Pharyngeal Contraction (0-3) 0 Was complete 1 Was incomplete, with presenc e of pseudodiverticulae 14 PES Opening (0-3) 1 Demonstrated partial distension/partial duration, with partial obstruction of flow 1 Demonstrated partial distension/partial duration, with partial obstruction of flow 15 Tongue Base Retraction (0-4) 1 Allowed a trace column of contrast or air between tongue base and pharyngeal wall 1 Allowed a trace column of contrast or air between tongue base and pharyngeal wall 16 Pharyngeal Residue (0-4) 2 Was a collection of residue within or on pharyngeal structures 2 Was a collection of residue within or on pharyngeal structures 17 Esophageal Clearance (0-4) 2 Resulted in esophageal retention with retrogra de flow below pharyngoesophageal segment 2 Resulted in esophageal retention with retrograde flow below pharyngoesophageal segment Results: COMPONENT Scale SCORE Previous SCORE 1 Oral Score (0-18) 4 2 2 Pharyngeal Score (0-29) 8 8 3 Esophageal Score (0-4) 2 2 Penetration-Aspiration Scale: COMPONENT Scale SCORE Previous SCORE 1 Thin liquid (1-8) 6 Contrast entered the airway, passed below the vocal fold s, and was ejected into the larynx or out of the airway. 2 Contrast entered the airway, remained above the vocal folds, and was ejected from the airway. 2 [place] thick (1-8) 6 Contrast entered the airway, passed below the vocal folds, and was ejected into the larynx or out of the airway. 1 Contrast did not enter the airway 3 Honey thick (1-8) NA NA 4 Pudding thick (1-8) 1 Contrast did not enter the airway 1 Contrast did not enter the airway 5 Cookie (1-8) 1 Contrast did not enter the airway 1 Contrast did not enter t he airway Trialed Compensatory Strategies & Outcome: Maneuvers Successful (+) Unsuccessful (-) Postures Successful (+) Unsuccessful (-) 3 second Preparatory Set? + Chin Tuck Po sture? ?- (no improvement) Cough? ? Posterior Head tilt? Reflexive? Cued? Throat Clear? ? Head Tilt to? Reflexive? Left? Cued? ?+ ? Right? ? Saliva swallow? ?+ Head Turn/Rotate to? ? Supraglottic Swallow? Left? ? Super-supraglottic Swallow? Right? ?+ to clear puree/solid valecular residue Bolus Modifications Successful (+) Unsuccessful (-) Delivery/Alternating Consistencies ? Follow with Liquid Wash + (esophageal stasis ? Follow with Solid Bolus? Delivery/Via Straw? ? Reduced Volume? ?+ Reduced Rate of Intake? ?+ Increased Viscosity? ?- (liquids, no improvement) Other:?? ? Thank you for allowing us to take part in this patient's care. Please feel free to contact the [facility] Speech Language Pathology Department with any questions/concerns.
== END 2023-12-30 01:20 ==
PROVIDERS: PCP Nurse Practitioner Family; Visit Provider Psychiatry & Neurology Neurology
DX: R13.10 Dysphagia, unspecified (principal)
CPT/HCPCS: 92526; 74221

== ENCOUNTER → 2024-01-05 10:19 | Outpatient (BNVA) | payer MEDICARE, MEDICAID, SELFPAY | PROVIDERS: PCP Nurse Practitioner Family; Visit Provider Psychiatry & Neurology Neurology | DX: G20.C Parkinsonism, unspecified (principal); R13.10 Dysphagia, unspecified; R20.2 Paresthesia of skin; R49.8 Other voice and resonance disorders; R47.1 Dysarthria and anarthria | CPT/HCPCS: 99214 ==

== ENCOUNTER → 2024-04-04 10:39 | Outpatient (BNVA) | payer MEDICARE, MEDICAID, SELFPAY | PROVIDERS: PCP Nurse Practitioner Family; Referring Provider Nurse Practitioner Family; Visit Provider Psychiatry & Neurology Neurology | DX: G20.C Parkinsonism, unspecified (principal); R49.8 Other voice and resonance disorders; R13.10 Dysphagia, unspecified; R20.2 Paresthesia of skin; R47.1 Dysarthria and anarthria | CPT/HCPCS: 99214 ==

== ENCOUNTER 2024-04-06 02:24 | Outpatient (CLI) | payer MEDICARE, MEDICAID, SELFPAY ==
--- NOTE | 2024-04-06 12:34 | DI.US_ITS ---
APPROVED REPORT EXAM: Comprehensive 2D, Doppler, and color-flow Echocardiogram Patient Location: Out-Patient Beauty Specialist: Yuly Lindsay RDCS (AE) Indications: Aortic valve disorder, nonrheumatic, parkinsons Other Information Study Quality: Adequate. Technically limited study due to body habitus. Conclusion Normal left ventricular wall thickness and chamber size. Ejection fraction is 60%. Wall motion is n ormal Normal right ventricular size and function Both atria are normal in size Aortic valve is sclerotic and trileaflet without stenosis or regurgitation. There is no additional s ignificant valvular disease Estimated right ventricular systolic pressure is 31 mmHg Wall motion Left Ventricle Technically limited parasternal imaging. The left ventricular systolic function is normal. The left v entricular ejection fraction is within the normal range. There is normal LV segmental wall motion. Th ere is no ventricular septal defect visualized. LVEF is 60%. Right Ventricle Right ventricle is grossly normal in size. Right ventricular systolic function is grossly normal. Atria The left atrium size is normal. The right atrium size is normal. The interatrial septum is intact wit h no evidence for an atrial septal defect. Aortic Valve The Aortic valve is sclerotic. Aortic valve is trileaflet. There is no aortic valvular stenosis. No a ortic regurgitation is present. Mitral Valve The mitral valve is normal in structure. No evidence of mitral valve stenosis. Trace mitral regurgita tion. Tricuspid Valve The tricuspid valve is normal in structure. There is no tricuspid valve stenosis. Trace to mild tric uspid regurgitation. The RVSP is 30.9mmHg. Pulmonic Valve The pulmonary valve is normal in structure. There is no pulmonic valvular stenosis. Trace pulmonic re gurgitation. Great Vessels The aortic root is normal in size. Ascending aorta is not well visualized. Aortic arch is normal in c aliber. IVC is normal in size and collapses >50% with inspiration. Pericardium There is no pericardial effusion. 2D Dimensions Ao Root d 3.37 cm M: 3.1 - 3.7 M-Mode TAPSE 2.58 cm (M/F) >1.7 Auto EF LV EDV A4C 106.4 mL LV EDV A2C 105.7 mL LV EDV BP 105.1 mL LV ESV A4C 41.3 mL LV ESV A2C 44.1 mL LV ESV BP 42.8 mL LVEF(%) A4C 61.2 % LVEF(%) A2C 58.3 % LVEF(%) BP 59.3 % LV SV A4C 65.1 ml LV SV A2C 61.6 ml LV SV BP 62.3 ml LV CO A4C 4.0 L/min LV CO A2C 3.8 L/min LV CO BP 3.9 L/min HR A4C 61.41 BPM HR A2C 61.97 BPM LV EDV Index (BP) LA Volume LA Length A4C 4.1 cm LA Length A2C 5.1 cm LA Area A4C s 12.32 cm2 LA Area A2C s 14.64 cm2 LA Vol A4C A-L 31.10 mL LA Vol A2C A-L 35.82 mL LA Vol Biplane A-L 37.0 mL LA Vol/BSA A4C A-L LA Vol/BSA A2C A-L LA Vol/BSA BP A-L 20.3 mL/m2 LA Vol A4C MOD 29.3 mL LA Vol A2C MOD 34.4 mL LA Vol BP MOD 35.1 mL RA Volume RA Area A4C 8.2 cm2 RA ESV A4C (A-L) 14.1mL RA Vol/BSA A4C A-L RA Length A4C 4.0 cm RA ESV A4C (MOD) 13.9mL LV Diastology MV E' medial 0.087 (>0.07 m/s) MV E Vmax 0.93 (0.4-1.3 m/s) MV E/E' MED 10.80 (<14) MV A Vmax 1.15 (0.4-1.3 m/s) E/A Ratio 0.8 Aortic Valve AoV Vmax 1.47 m/s LVOT Vmax 1.14 m/s AoV Peak Grad 8.7 mmHg LVOT Peak Grad 5.2 mmHg AoV Area (Vmax) 2.17 cm2 LVOT VTI 0.232 m AoV VTI 0.324 m LVOT Mean Grad 3.1 mmHg AoV Mean Gilbert. 1.07 m/s LVOT SV 65.00 mL AoV Mean Grad 5.1 mmHg LVOT Diam s 1.85 cm AoV Area (VTI) 2.00 cm2 AV Regurg Peak Gr. 8.69 mmHg Velocity Ratio 0.78 Mitral Valve MV DT 417 (160-240 msec) MV Vmax TIPS 1.25 m/s MV Mean Grad 3.0 (<2mmHg) MV VTI 0.294 m Pulmonary Valve PV Vmax 1.21 (0.5-1.5 m/s) RVOT Vmax 0.99 m/s PV Peak Grad 5.8 mmHg RVOT Peak Gr. 4.0 mmHg PV Mean Gilbert 0.83 m/s RVOT VTI 0.205 m PV Mean Grad 3.2 mmHg RVOT Mean Gr. 2.1 mmHg Tricuspid Valve RA Pressure 3.00 mmHg TR Vmax 2.64 m/s TV S' 0.18 m/s TR Peak Grad 27.9 mmHg RVSP (TR) 30.9 mmHg
== END 2024-04-06 02:44 ==
LOC: DI 02:25
PROVIDERS: PCP Nurse Practitioner Family; Visit Provider Internal Medicine Cardiovascular Disease
DX: I35.1 Nonrheumatic aortic (valve) insufficiency (principal)
CPT/HCPCS: 93306

== ENCOUNTER 2024-04-19 08:15 | Outpatient (CLI) | payer MEDICARE, MEDICAID, SELFPAY | END 2024-04-19 08:16 | disposition home or self-care (01) | LOC: DI.CARD 08:16 | PROVIDERS: PCP Nurse Practitioner Family; Visit Provider Internal Medicine Cardiovascular Disease | CPT/HCPCS: 93010 ==

== ENCOUNTER → 2024-04-19 12:46 | Outpatient (BNVA) | payer MEDICARE, MEDICAID, SELFPAY | PROVIDERS: PCP Nurse Practitioner Family; Referring Provider Nurse Practitioner Family; Visit Provider Internal Medicine Cardiovascular Disease | DX: I35.8 Other nonrheumatic aortic valve disorders (principal) | CPT/HCPCS: 99213 ==

== ENCOUNTER 2024-05-25 20:15 | Outpatient (REF) | payer MEDICARE, MEDICAID, SELFPAY ==
[2024-05-25 19:49] LABS: Abs Immature Grans 0.03 10^3/uL (0.0-0.06); Absolute Basophil Count 0.07 10^3/uL (0.0-0.2); Absolute Eosinophil Count 0.13 10^3/uL (0.0-0.7); Absolute Lymphocyte Count 2.85 10^3/uL (1.2-3.4); Absolute Monocyte Count 0.67 10^3/uL (0.1-0.8); Absolute Neutrophil Count 4.09 10^3/uL (1.2-6.7); Basophils % 0.9 %; Eosinophils % 1.7 %; HCT 33.4 % (40.0-50.0); HGB 11.1 g/dL (13.5-17.5); Immature Grans % 0.4 %; Lymphocytes % 36.4 %; MCH 32.4 pg (27.0-33.0); MCHC 33.2 % (32.0-36.0); MCV 97 fL (80-95); MPV 10.2 fL (8.0-11.0); Monocytes % 8.5 %; Neutrophils % 52.1 %; Platelet Count 192 10^3/uL (130-400); RBC 3.43 10^6/uL (4.36-5.78); RDW-SD 43.5 fL; WBC 7.84 10^3/uL (4.4-10.8)
[2024-05-25 20:15] LABS: ALT 7 U/L (16-63); AST 5 U/L (15-37); Albumin 3.7 g/dL (3.4-5.0); Alkaline Phosphatase 50 U/L (46-116); Anion Gap 5.1 mmol/L (3-11); BUN 27 mg/dL (7-18); Bilirubin, Total 0.75 mg/dL (0.2-1.0); CO2 31.9 mmol/L (21.0-32.0); CREATININE 1.4 mg/dL (0.70-1.30); Calcium 9.4 mg/dL (8.5-10.1); Chloride 105 mmol/L (98-107); Estimated GFR 50.49 (mL/min/1.73m2); Ferritin 97 ng/mL (26-388); Glucose 115 mg/dL (74-106); Potassium 4.5 mmol/L (3.5-5.1); Sodium 142 mmol/L (136-145)
[2024-05-25 20:32] LABS: Hemoglobin A1C 6.2 % (<5.7)
[2024-05-25 20:34] LABS: Iron 50 ug/dL (65-175); Total Iron Binding Capacity 221 ug/dL (250-450); Transferrin Sat 23 % (20-55)
[2024-05-26 18:32] LABS: PSA, Screening 1.3 ng/mL (<=6.5)
[2024-05-27 09:41] LABS: AFP Tumor Marker <2.5 ng/mL (<8.1)
== END 2024-05-25 20:16 | disposition home or self-care (01) ==
LOC: NCHCN 20:15
PROVIDERS: PCP Nurse Practitioner Family; Visit Provider Nurse Practitioner Family
DX: K74.69 Other cirrhosis of liver; K22.70 Barrett's esophagus without dysplasia; N40.1 Benign prostatic hyperplasia with lower urinary tract symptoms; R73.03 Prediabetes; D64.9 Anemia, unspecified
CPT/HCPCS: 80053; 84153; 82105; 82728; 83036; 83540; 83550; 85025

== ENCOUNTER → 2024-06-27 10:38 | Outpatient (BNVA) | payer MEDICARE, MEDICAID, SELFPAY | PROVIDERS: PCP Nurse Practitioner Family; Visit Provider Nurse Practitioner Gerontology | DX: N42.89 Other specified disorders of prostate (principal); N40.0 Benign prostatic hyperplasia without lower urinary tract symptoms; R97.20 Elevated prostate specific antigen [PSA]; R39.9 Unspecified symptoms and signs involving the genitourinary system; G20.C Parkinsonism, unspecified | CPT/HCPCS: 51798; 99213 ==

== ENCOUNTER → 2024-07-04 09:38 | Outpatient (BNVA) | payer MEDICARE, MEDICAID, SELFPAY | PROVIDERS: PCP Nurse Practitioner Family; Visit Provider Psychiatry & Neurology Neurology | DX: G20.C Parkinsonism, unspecified (principal); R13.19 Other dysphagia; R20.2 Paresthesia of skin; R49.8 Other voice and resonance disorders; R47.1 Dysarthria and anarthria; K59.00 Constipation, unspecified; I10 Essential (primary) hypertension; E11.9 Type 2 diabetes mellitus without complications | CPT/HCPCS: 99214 ==

== ENCOUNTER 2024-07-05 02:09 | Outpatient (CLI) | payer MEDICARE, MEDICAID, SELFPAY ==
--- NOTE | 2024-07-05 | DI.US_ITS ---
Exam(s) US ABDOMEN EXAM: US ABDOMEN CLINICAL HISTORY: Meyer's esophagus wo dysplasia, K22.70; other cirrhosis of liver, K74.69 TECHNIQUE: Ultrasound abdomen performed using standard protocol. COMPARISON: US US ABDOMEN from 11/24/2023 US US ECHOCARDIOGRAM from 04/06/2024 FINDINGS: LIVER: Normal size measuring 14.3 cm in length. Mild coarsening of the echotexture peer mildly incre ased echogenicity, similar to prior.. No focal liver lesions are seen. GALLBLADDER: cholelithiasis. No evidence of wall thickening. No pericholecystic fluid identified. MCCORMACK'S SIGN: Negative. BILIARY SYSTEM: No intrahepatic or extrahepatic biliary ductal dilation. KIDNEYS: Kidneys are symmetric in size. No evidence of renal calculi. No evidence of hydronephrosis. No renal mass or cyst identified. PANCREAS: Normal where visualized. SPLEEN: Not enlarged. ABDOMINAL AORTA AND IVC: Visualized portions normal caliber. ASCITES: None seen. IMPRESSION: Stable appearance of the mildly increased echogenicity. No focal masses. Cholelithiasis. DATA REPOSITORY:
== END 2024-07-05 02:29 ==
LOC: DI 02:10
PROVIDERS: PCP Nurse Practitioner Family; Visit Provider Nurse Practitioner Family
DX: K22.70 Barrett's esophagus without dysplasia (principal); K74.69 Other cirrhosis of liver
CPT/HCPCS: 76700

== ENCOUNTER 2024-07-16 15:27 | Outpatient (REF) | payer MEDICARE, MEDICAID, SELFPAY ==
[2024-07-16 15:35] LABS: Bilirubin Negative (Negative); Blood Negative (Negative); Clarity Clear (Clear); Glucose Negative (Negative); Ketones Negative (Negative); Leukocyte Esterase Negative (Negative); Nitrite Negative (Negative); Specific Gravity 1.015 (1.005-1.025); Urobilinogen 0.2 mg/dL (Up to 0.2)
== END 2024-07-16 15:28 | disposition home or self-care (01) ==
LOC: NCHCN 15:27
PROVIDERS: PCP Nurse Practitioner Family; Visit Provider Nurse Practitioner Family
DX: N40.1 Benign prostatic hyperplasia with lower urinary tract symptoms (principal)
CPT/HCPCS: 81003

== ENCOUNTER → 2024-10-03 10:41 | Outpatient (BNVA) | payer MEDICARE, MEDICAID, SELFPAY | PROVIDERS: PCP Nurse Practitioner Family; Visit Provider Psychiatry & Neurology Neurology | DX: G20.C Parkinsonism, unspecified (principal); R31.0 Gross hematuria; R20.2 Paresthesia of skin; R49.8 Other voice and resonance disorders; R47.1 Dysarthria and anarthria; K59.00 Constipation, unspecified; E11.59 Type 2 diabetes mellitus with other circulatory complications; I10 Essential (primary) hypertension; Z82.0 Family history of epilepsy and other diseases of the nervous system | CPT/HCPCS: 99214 ==

== ENCOUNTER 2024-12-21 13:43 | Outpatient (REF) | payer MEDICARE, MEDICAID, SELFPAY ==
[2024-12-21 15:58] LABS: Abs Immature Grans 0.02 10^3/uL (0.0-0.06); HCT 34.8 % (40.0-50.0); HGB 11.7 g/dL (13.5-17.5); Immature Grans % 0.3 %; MCH 32.7 pg (27.0-33.0); MCHC 33.6 % (32.0-36.0); MCV 97 fL (80-95); MPV 10.4 fL (8.0-11.0); Platelet Count 215 10^3/uL (130-400); RBC 3.58 10^6/uL (4.36-5.78); RDW 12.1 % (11.8-14.1); RDW-SD 43.5 fL; WBC 8.00 10^3/uL (4.4-10.8)
[2024-12-21 16:13] LABS: Glucose Negative (Negative)
[2024-12-21 16:16] LABS: ALT 8 U/L (16-63); AST 7 U/L (15-37); Albumin 3.9 g/dL (3.4-5.0); Alkaline Phosphatase 57 U/L (46-116); Anion Gap 8.9 mmol/L (3-11); BUN 26 mg/dL (7-18); Bilirubin, Total 0.6 mg/dL (0.2-1.0); CO2 29.1 mmol/L (21.0-32.0); Calcium 9.1 mg/dL (8.5-10.1); Chloride 105 mmol/L (98-107); Estimated GFR 60.75 (mL/min/1.73m2); Glucose 104 mg/dL (74-106); Potassium 4.3 mmol/L (3.5-5.1); Sodium 143 mmol/L (136-145); Total Protein 7.3 g/dL (6.4-8.2)
[2024-12-21 16:26] LABS: Iron 63 ug/dL (65-175); Total Iron Binding Capacity 243 ug/dL (250-450); Transferrin Sat 26 % (20-55)
[2024-12-22 10:07] LABS: Transferrin 184 mg/dL (201-352)
== END 2024-12-21 13:44 | disposition home or self-care (01) ==
LOC: NCHCN 13:43
PROVIDERS: PCP Nurse Practitioner Family; Visit Provider Nurse Practitioner Family
DX: K74.60 Unspecified cirrhosis of liver (principal)
CPT/HCPCS: 80053; 81003; 82105; 83540; 83550; 84466; 85025

== ENCOUNTER → 2024-12-26 14:42 | Outpatient (BNVA) | payer MEDICARE, MEDICAID, SELFPAY | PROVIDERS: PCP Nurse Practitioner Family; Referring Provider Nurse Practitioner Family; Visit Provider Psychiatry & Neurology Neurology | DX: G20.C Parkinsonism, unspecified (principal); R13.10 Dysphagia, unspecified; R20.2 Paresthesia of skin; R49.8 Other voice and resonance disorders; R47.1 Dysarthria and anarthria; K59.00 Constipation, unspecified; E11.59 Type 2 diabetes mellitus with other circulatory complications; I10 Essential (primary) hypertension | CPT/HCPCS: 99214 ==

== ENCOUNTER 2024-12-27 01:04 | Outpatient (CLI) | payer MEDICARE, MEDICAID, SELFPAY ==
--- NOTE | 2024-12-27 | DI.US_ITS ---
Exam(s) US ABDOMEN LIMITED EXAM: US ABDOMEN LIMITED CLINICAL HISTORY: CIRRHOSIS LIVER K76.60 TECHNIQUE: Ultrasound abdomen performed using standard protocol. COMPARISON: US US ABDOMEN LIMITED from 08/11/2022 FINDINGS: PANCREAS: Normal where visualized. LIVER: There is a coarsened echotexture to the liver which shows increased echogenicity. Hepatopetal flow in the Portal Vein. The liver measures in 16.4 cm length. No evidence of a hepatic mass. GALLBLADDER:Cholelithiasis. The gallstones are mobile. No evidence of wall thickening. No pericholecystic fluid identified. BILIARY SYSTEM: Common bile duct measures < 7 mm. No intrahepatic biliary ductal dilation. MCCORMACK'S SIGN: Negative. RIGHT KIDNEY: Kidney is normal in size. No evidence of renal calculi. No evidence of hydronephrosis. No renal mass or cyst identified. ASCITES: None seen. IMPRESSION: 1. Stable appearance of the liver. No sonographic evidence of a hepatic mass. 2. Cholelithiasis. No CT evidence to suggest acute cholecystitis. DATA REPOSITORY:
== END 2024-12-27 01:24 ==
LOC: DI 01:04
PROVIDERS: PCP Nurse Practitioner Family; Visit Provider Nurse Practitioner Family
DX: K74.60 Unspecified cirrhosis of liver (principal)
CPT/HCPCS: 76705